=== PATIENT | male | born 1980 | race Caucasian/White ===

== ENCOUNTER 2016-06-15 13:10 | Inpatient (IN) | payer OTHER ==
[2016-06-15] MEDS: NS 0.9% 1000 ML* 2,000 ML IV ONE ×2 (14:28→15:00)
[2016-06-15 14:42] LABS: Hematocrit 51 % (42-52); Hemoglobin 17.5 g/dl (14.0-18.0); Mean Corpuscular HGB Conc 34 g/dl (31-36); Mean Corpuscular Hemoglobin 31 pg (27-31); Mean Corpuscular Volume 91 fL (80-94); Mean Platelet Volume 8 um3 (7.4-10.4); Red Blood Count 5.65 10^6/ul (4.0-5.4); Red Cell Distribution Width 13 % (10.5-15); White Blood Count 12.4 10^3/ul (3.5-10.8)
[2016-06-15 15:03] LABS: Troponin I 0.01 ng/mL (<0.04)
[2016-06-15 15:16] LABS: Alcohol < 10 mg/dL (<10)
[2016-06-15 15:17] LABS: ALT 22 U/L (7-52); AST 11 U/L (13-39); Albumin 4.8 g/dL (3.2-5.2); Alkaline Phosphatase 68 U/L (34-104); BUN/Creatinine Ratio 16.8 (8-20); Blood Urea Nitrogen 26 mg/dL (6-24); Calcium 9.8 mg/dL (8.6-10.3); Chloride 92 mmol/L (101-111); EGFR African American 65.2 (>60); EGFR Non-African American 50.7 (>60); Globulin 3.4 g/dL (2-4); Glucose 379 mg/dL (70-100); Potassium 4.8 mmol/L (3.5-5.0); Sodium 129 mmol/L (133-145); Total Protein 8.2 g/dL (6.4-8.9)
[2016-06-15 15:26] LABS: Anion Gap 24 mmol/L (2-11); CO2 Carbon Dioxide 13 mmol/L (22-32)
[2016-06-15 15:45] LABS: Urine Bacteria Absent (Absent); Urine Bilirubin Negative (Negative); Urine Glucose 3+(>=500 mg/dL) (Negative); Urine Nitrite Negative (Negative)
[2016-06-15] MEDS ORDERED: NS 0.9% 1000 ML* 3,000 ML IV ONE (15:55)
--- NOTE | 2016-06-15 16:15 | ADMNOTE ---
Subjective Date of Service: 06/15/16 Interval History: ADMISSION HISTORY AND PHYSICAL EXAM: Allergies Allergy/AdvReac Type Severity Reaction Status Date / Time No Known Allergies Allergy Verified 06/15/16 13:18 Home Medications Medication Instructions Recorded Confirmed Type amLODIPine TAB* [Norvasc 5 mg TAB*] 5 mg PO DAILY 03/07/16 03/07/16 History busPIRone TAB* [Buspar TAB *] 15 mg PO BID 03/07/16 03/07/16 History Gabapentin CAP(*) [Neurontin 300 300 mg PO TID #90 cap 03/10/16 Rx CAP(*)] Hydrochlorothiazide TAB* 25 mg PO DAILY tab 03/10/16 Rx [Hydrodiuril TAB*] Insulin GLARGINE(*) [Lantus(*)] 70 units SUBCUT AM #0 06/15/16 oral Insulin Lispro [Humalog Kwikpen] 1 unit SC AC #0 03/10/16 03/07/16 Rx Lisinopril TAB* [Prinivil TAB 10 40 mg PO DAILY tab 03/10/16 Rx MG*] Vitamin THERAPEUTIC TAB* 1 tab PO DAILY tab 03/10/16 Rx [Theragran TAB*] HPI: Patient was ill with N&V, abd pain for 2 days. He states he last checked his FS glucose 4 days ago. He states he has had DKA before. He states he was diagnosed with DM about age 27, initially treated with oral meds. He is concerned about the fact that his girlfriend was diagnosed with an STD. They have an appt with [facility] 06/24/16. Family History: Findings Social History: Findings - , 3 children live with their mother. SDM is his girlfriend Ana Gagnon. DWI 2013. Smoked "years ago". Past Medical History: Findings - DM age 27, bipolar disorder hospitalized 02/27. Review of Systems - Measurements Intake and Output: Intake and Output Last 24 Hours 06/13/16 06/14/16 06/15/16 06/16/16 06:59 06:59 06:59 06:59 Intake Total 1999 Balance 1999 Weight 236 lb Intake: IV Fluids 1999 - Review of Systems Constitutional Symptoms: Negative: Weight Gain, Weight Loss, Weakness, Fatigue, Fever, Night Sweats, Unexplained Falls, Other Dermatology: Positive: Normal HEENT: Positive: Normal Eyes: Positive: Normal Thyroid: Positive: Normal Pulmonary: Positive: Normal Cardiology: Positive: Normal Gastroenterology: Positive: Nausea, Vomiting Genital - Urinary: Positive: Normal Genitourinary - Male: Positive: Other - C/O pain in testicles. Musculoskeletal: Negative: Joint Pain, Joint Stiffness, Arthritis, Osteoporosis, Low Back Pain , Sciatica, Joint Deformities, Kyphoscoliosis, Other Endocrinology: Positive: Diabetes Mellitus Hematologic/Lymphatic: Negative: Anemia, Easy Brusing, Hx Leukemia, Hx Lymphoma, Use of Anticoagulant, Use of Antiplatelet Drugs, Other Neurology: Positive: Normal Psychiatry: Positive: Anxiety Allergic/Immunologic: Negative: Hx Anaphylaxis, Hx Angioedema, Hx Environmental, Hx Seasonal, Athsma, Hx HIV, Immunocompromise, Swollen Glands LymphNodes, Other Objective Active Medications: Buspirone HCl (Buspar Tab *) 15 mg PO BID ALEXANDRE Sodium Chloride (Ns 0.9% 1000 Ml*) 2,000 mls @ 1,000 mls/hr IV .PER RATE ONE Stop: 06/15/16 16:08 Last Admin: 06/15/16 15:00 Dose: 1,000 mls/hr Insulin Human Regular 100 (units/ Sodium Chloride) 100 mls @ 4 mls/hr IVPB Q24H ALEXANDRE PRN Reason: 4 UNITS/HR Sodium Chloride (Ns 0.9% 1000 Ml*) 3,000 mls @ 1,000 mls/hr IV .PER RATE ONE Stop: 06/15/16 18:54 Insulin Glargine (Lantus(*)) 60 units SUBCUT Q24H [facility] Vital Signs 06/15/16 06/15/16 06/15/16 13:18 13:32 13:34 Temperature 97.5 F Pulse Rate 100 95 Respiratory 20 Rate Blood Pressure 132/77 137/75 (mmHg) O2 Sat by Pulse 100 99 Oximetry 06/15/16 06/15/16 06/15/16 13:53 14:00 14:30 Temperature Pulse Rate 112 99 94 Respiratory Rate Blood Pressure 149/97 157/89 123/86 (mmHg) O2 Sat by Pulse 98 99 99 Oximetry 06/15/16 06/15/16 15:00 15:30 Temperature Pulse Rate 86 94 Respiratory Rate Blood Pressure 127/69 144/93 (mmHg) O2 Sat by Pulse 100 100 Oximetry Oxygen Devices in Use Now: None Appearance: Alert, supine on ED stretcher. In fair spirits. Looks comfortable. Eyes: No Scleral Icterus Ears/Nose/Mouth/Throat: Clear Oropharnyx, Mucous Membranes Moist Neck: NL Appearance and Movements; NL JVP, No Thyroid Enlargement, Masses Respiratory: Symmetrical Chest Expansion and Respiratory Effort, Clear to Auscultation, Clear to Percussion Cardiovascular: NL Sounds; No Murmurs; No JVD, RRR, No Edema, - Abdominal: NL Sounds; No Tenderness; No Distention, No Hepatosplenomegaly - No tenderness to deep palpation. No scrotal mass or swelling, testes not enlarged , not tender. No penile discharge. , - Extremities: No Edema, No Clubbing, Cyanosis Skin: No Rash or Ulcers, No Nodules or Sclerosis Neurological: Alert and Oriented x 3, NL Sensation Result Diagrams: 06/15/16 14:25 06/15/16 14:25 Assess/Plan/Problems-Billing Assessment: - Patient Problems (1) DKA (diabetic ketoacidoses) Current Visit: Yes Status: Acute Code(s): E13.10 - OTH DIABETES MELLITUS WITH KETOACIDOSIS WITHOUT COMA SNOMED Code(s): 443997169 Comment: Patient not very rigorous about controlling his DM at home. No other medical illness seems to be present to account for his DKA. ICU care with insulin infusion, FS q 1 hr. Start oral K+ 4/3 in evening. (2) Exposure to STD Current Visit: Yes Status: Acute Code(s): Z20.2 - CONTACT W AND EXPOSURE TO INFECT W A SEXL MODE OF TRANSMISS SNOMED Code(s): 760176927 Comment: Urine test for chlamydia and gonorrhea ordered. (3) Mood disorder Current Visit: No Status: Acute Comment: Not clear if gabapentin has been of benefit for him or if he uses it. Mood seems fairly appropriate now.
[2016-06-15 17:54] LABS: BUN/Creatinine Ratio 15.5 (8-20); Calcium 8.5 mg/dL (8.6-10.3); EGFR African American 80.6 (>60); EGFR Non-African American 62.7 (>60); Potassium 4.4 mmol/L (3.5-5.0)
[2016-06-15] MEDS ORDERED: Dextrose 50% Syringe 50 ML* 25 GM/50 ML SYRINGE IV PUSH PRN ×2 (18:07→18:10)
[2016-06-15] MEDS ORDERED: Insulin LISPRO* 1 UNITS UNIT SUBCUT SCH ×2 (18:10→21:00)
[2016-06-15 19:31] LABS: Benzodiazepine Urine Screen Presumptive Positive (None Detect)
[2016-06-15] MEDS ORDERED: Potassium Chlor TAB* 20 MEQ TAB.ER PO SCH (21:00)
[2016-06-15] MEDS ORDERED: busPIRone TAB* 15 MG PO SCH (21:00)
--- NOTE | 2016-06-15 22:32 | ED ---
Blaze Sharpe Benjamin, scribed for Rigo Wang MD on 06/15/16 at 1526 . HPI Diabetic - HPI Summary HPI Summary: 36yo male BIB EMS for possible DKA. Pt is type 2 diabetic, and reports being disoriented today. Pt was on the phone with his girlfriend, and his girlfriend noted that the pt was disoriented over phone and called 911. Pt reports vomiting all throughout yesterday, night sweats last night, and some abdominal discomfort. Blood glucose was around 400s en route. Pt also reports a separate pulsating testicle pain. Pt states that his partner might have STIs. - History Of Current Complaint Chief Complaint: EDDiabeticProb Time Seen by Provider: 06/15/16 13:50 Hx Obtained From: Patient Onset/Duration: Sudden Onset, Lasting Hours Timing: Intermittent Episode Lasting Severity Initially: Moderate Severity Currently: Moderate Character: Confused Aggravating: Nothing Alleviating: Nothing Associated Signs & Symptoms: Decreased Level of Conciousness, Vomiting Related History: DM II - Allergies/Home Medications Allergies/Adverse Reactions: Allergies Allergy/AdvReac Type Severity Reaction Status Date / Time No Known Allergies Allergy Verified 06/15/16 13:18 Home Medications: Home Medications Diazepam TAB(*) [Valium TAB(*)] 5 mg PO BID 06/15/16 [History Confirmed 06/15/16 ] Diazepam TAB(*) [Valium TAB(*)] 10 mg PO BEDTIME PRN 06/15/16 [History Confirmed 06/15/16] FLUoxetine CAP* [PROzac CAP*] 20 mg PO QAM 06/15/16 [History Confirmed 06/15/16] Insulin GLARGINE(*) [Lantus(*)] 50 units SUBCUT QPM 06/15/16 [History Confirmed 06/15/16] Insulin Lispro [Humalog Kwikpen] 0 - 100 unit SUBCUT AC 06/15/16 [History Confirmed 06/15/16] Lisinopril/HCTZ 20/12.5(NF) [Zestoretic 20/12.5(NF)] 2 tab PO DAILY 06/15/16 [ History Confirmed 06/15/16] Lurasidone (NF) [Latuda (NF)] 40 mg PO BEDTIME 06/15/16 [History Confirmed 05/29] traZODone TAB* [Desyrel TAB*] 100 mg PO BEDTIME PRN 06/15/16 [History Confirmed 06/15/16] PMH/Surg Hx/FS Hx/Imm Hx Endocrine/Hematology History: Reports: Hx Diabetes Cardiovascular History: Reports: Hx Hypertension Musculoskeletal History: Reports: Hx Back Problems - says has h\o bulging disks (two) for years Sensory History: Reports: Hx Contacts or Glasses Denies: Hx Cataracts Opthamlomology History: Reports: Hx Contacts or Glasses Denies: Hx Cataracts Neurological History: Reports: Hx Migraine Denies: Hx Dementia, Hx Developmental Delay, Hx Seizures, Hx Transient Ischemic Attacks (TIA) Psychiatric History: Reports: Hx Anxiety, Hx Depression, Hx Post Traumatic Stress Disorder, Hx Bipolar Disorder Denies: Hx Eating Disorder, Hx of Violent Episodes Against Others Infectious Disease History: No Infectious Disease History: Denies: Hx Clostridium Difficile, Hx Hepatitis, Hx Human Immunodeficiency Virus (HIV), Hx of Known/Suspected MRSA, Hx Shingles, Hx Tuberculosis, History Other Infectious Disease, Traveled Outside the [place] in Last 30 Days - Family History Known Family History: Positive: Diabetes, Other - substance abuse, mental health problems - Social History Occupation: Employed Full-time Lives: With Family Alcohol Use: Rare Substance Use Type: Reports: None, Other 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 Hx Tobacco Use: Yes Smoking Status (MU): Former Smoker Type: Cigarettes Have You Smoked in the Last Year: No Review of Systems Positive: Skin Diaphoresis, Other - DKA like symptoms Eyes: Negative ENT: Negative Cardiovascular: Negative Respiratory: Negative Positive: Abdominal Pain - discomfort , Vomiting Genitourinary: Negative Musculoskeletal: Negative Skin: Negative Neurological: Other - confused Psychological: Normal All Other Systems Reviewed And Are Negative: Yes Physical Exam Triage Information Reviewed: Yes Vital Signs On Initial Exam: Initial Vitals Temp Pulse Resp BP Pulse Ox 97.5 F 100 20 132/77 100 06/15/16 13:18 06/15/16 13:18 06/15/16 13:18 06/15/16 13:18 06/15/16 13:18 Vital Signs Reviewed: Yes Appearance: Positive: Well-Appearing, No Pain Distress, Well-Nourished Skin: Positive: Warm, Skin Color Reflects Adequate Perfusion, Dry Head/Face: Positive: Normal Head/Face Inspection Eyes: Positive: Normal ENT: Positive: Normal ENT inspection Neck: Positive: Supple, Nontender Respiratory/Lung Sounds: Positive: Clear to Auscultation, Breath Sounds Present Cardiovascular: Positive: RRR Abdomen Description: Positive: Nontender, Soft Bowel Sounds: Positive: Present Musculoskeletal: Positive: Strength/ROM Intact Neurological: Positive: Sensory/Motor Intact, Alert, Oriented to Person Place, Time, CN Intact II-III Psychiatric: Positive: Affect/Mood Appropriate - Gomez Coma Scale Coma Scale Total: 15 Diagnostics - Vital Signs Vital Signs Temp Pulse Resp BP Pulse Ox 06/15/16 14:00 99 157/89 99 06/15/16 13:53 112 149/97 98 06/15/16 13:34 95 99 06/15/16 13:32 137/75 06/15/16 13:18 97.5 F 100 20 132/77 100 - Laboratory Lab Results: Lab Results 06/15/16 06/15/16 06/15/16 Range/Units 13:51 14:25 14:25 WBC 12.4 H (3.5-10.8) 10^3/ul RBC 5.65 H (4.0-5.4) 10^6/ul Hgb 17.5 (14.0-18.0) g/dl Hct 51 (42-52) % MCV 91 (80-94) fL MCH 31 (27-31) pg MCHC 34 (31-36) g/dl RDW 13 (10.5-15) % Plt Count 363 (150-450) 10^3/ul MPV 8 (7.4-10.4) um3 Neut % (Auto) 78.3 (38-83) % Lymph % (Auto) 14.8 L (25-47) % [place] % (Auto) 5.5 (1-9) % Eos % (Auto) 1.0 (0-6) % Baso % (Auto) 0.4 (0-2) % Absolute Neuts (auto) 9.8 H (1.5-7.7) 10^3/ul Absolute Lymphs (auto) 1.8 (1.0-4.8) 10^3/ul Absolute Monos (auto) 0.7 (0-0.8) 10^3/ul Absolute Eos (auto) 0.1 (0-0.6) 10^3/ul Absolute Basos (auto) 0.1 (0-0.2) 10^3/ul Absolute Nucleated RBC 0.01 10^3/ul Nucleated RBC % 0.1 Sodium 129 L (133-145) mmol/L Potassium 4.8 (3.5-5.0) mmol/L Chloride 92 L (101-111) mmol/L Carbon Dioxide 13 L* (22-32) mmol/L Anion Gap 24 H (2-11) mmol/L BUN 26 H (6-24) mg/dL Creatinine 1.55 H (0.67-1.17) mg/dL Est GFR ( Amer) 65.2 (>60) Est GFR (Non-Af Amer) 50.7 (>60) BUN/Creatinine Ratio 16.8 (8-20) Glucose 379 H (70-100) mg/dL POC Glucose (mg/dL) 403 H* (74-106) mg/dL Lactic Acid (0.5-2.0) mmol/L Calcium 9.8 (8.6-10.3) mg/dL Total Bilirubin 1.20 H (0.2-1.0) mg/dL AST 11 L (13-39) U/L ALT 22 (7-52) U/L Alkaline Phosphatase 68 (34-104) U/L Troponin I 0.01 (<0.04) ng/mL Total Protein 8.2 (6.4-8.9) g/dL Albumin 4.8 (3.2-5.2) g/dL Globulin 3.4 (2-4) g/dL Albumin/Globulin Ratio 1.4 (1-3) Urine Color Urine Appearance Urine pH (5-9) Ur Specific Jackson (1.010-1.030) Urine Protein (Negative) Urine Ketones (Negative) Urine Blood (Negative) Urine Nitrate (Negative) Urine Bilirubin (Negative) Urine Urobilinogen (Negative) Ur Leukocyte Esterase (Negative) Urine WBC (Auto) (Absent) Urine RBC (Auto) (Absent) Ur Squamous Epith Cells (Absent) Urine Bacteria (Absent) Urine Glucose (Negative) Serum Alcohol < 10 (<10) mg/dL 06/15/16 06/15/16 Range/Units 14:25 15:30 WBC (3.5-10.8) 10^3/ul RBC (4.0-5.4) 10^6/ul Hgb (14.0-18.0) g/dl Hct (42-52) % MCV (80-94) fL MCH (27-31) pg MCHC (31-36) g/dl RDW (10.5-15) % Plt Count (150-450) 10^3/ul MPV (7.4-10.4) um3 Neut % (Auto) (38-83) % Lymph % (Auto) (25-47) % [place] % (Auto) (1-9) % Eos % (Auto) (0-6) % Baso % (Auto) (0-2) % Absolute Neuts (auto) (1.5-7.7) 10^3/ul Absolute Lymphs (auto) (1.0-4.8) 10^3/ul Absolute Monos (auto) (0-0.8) 10^3/ul Absolute Eos (auto) (0-0.6) 10^3/ul Absolute Basos (auto) (0-0.2) 10^3/ul Absolute Nucleated RBC 10^3/ul Nucleated RBC % Sodium (133-145) mmol/L Potassium (3.5-5.0) mmol/L Chloride (101-111) mmol/L Carbon Dioxide (22-32) mmol/L Anion Gap (2-11) mmol/L BUN (6-24) mg/dL Creatinine (0.67-1.17) mg/dL Est GFR ( Amer) (>60) Est GFR (Non-Af Amer) (>60) BUN/Creatinine Ratio (8-20) Glucose (70-100) mg/dL POC Glucose (mg/dL) (74-106) mg/dL Lactic Acid 1.3 (0.5-2.0) mmol/L Calcium (8.6-10.3) mg/dL Total Bilirubin (0.2-1.0) mg/dL AST (13-39) U/L ALT (7-52) U/L Alkaline Phosphatase (34-104) U/L Troponin I (<0.04) ng/mL Total Protein (6.4-8.9) g/dL Albumin (3.2-5.2) g/dL Globulin (2-4) g/dL Albumin/Globulin Ratio (1-3) Urine Color Yellow Urine Appearance Clear Urine pH 5.0 (5-9) Ur Specific Jackson 1.027 (1.010-1.030) Urine Protein Negative (Negative) Urine Ketones 2+ H (Negative) Urine Blood 1+ H (Negative) Urine Nitrate Negative (Negative) Urine Bilirubin Negative (Negative) Urine Urobilinogen Negative (Negative) Ur Leukocyte Esterase Negative (Negative) Urine WBC (Auto) Absent (Absent) Urine RBC (Auto) Trace(0-2/hpf) (Absent) Ur Squamous Epith Cells Present H (Absent) Urine Bacteria Absent (Absent) Urine Glucose 3+(>=500 mg/dl) H (Negative) Serum Alcohol (<10) mg/dL Result Diagrams: 06/15/16 14:25 06/15/16 17:00 Lab Statement: Any lab studies that have been ordered have been reviewed, and results considered in the medical decision making process. Diabetic Course/Dx - Course Course Of Treatment: Mr. Browning presented with mild DKA and was treated with NS and admitted to the hospital. - Diagnoses Provider Diagnoses: DKA (diabetic ketoacidoses) - Critical Care Time Critical Care Time: 30-74 min Discharge - Discharge Plan Condition: Stable Disposition: ADMITTED TO [facility] The documentation as recorded by the Blaze florez Benjamin accurately reflects the service I personally performed and the decisions made by Felipe rocha Richard L, MD.
[2016-06-15 23:22] VITALS: BP 151/83
[2016-06-16] MEDS ORDERED: Insulin GLARGINE(*) 1 UNITS UNIT SUBCUT SCH (08:00)
== END 2016-06-15 21:00 | disposition left against medical advice (07) | DRG 420 ==
LOC: ED 13:10 → ICU 15:34 → MED 21:00
PROVIDERS: ADMIT Internal Medicine; ATTEND Internal Medicine
DX: E13.10 Other specified diabetes mellitus with ketoacidosis without coma (principal); F33.9 Major depressive disorder, recurrent, unspecified; I10 Essential (primary) hypertension; F41.9 Anxiety disorder, unspecified; G43.909 Migraine, unspecified, not intractable, without status migrainosus; F43.10 Post-traumatic stress disorder, unspecified; Z87.891 Personal history of nicotine dependence; Z20.2 Contact with and (suspected) exposure to infections with a predominantly sexual mode of transmission; Z79.4 Long term (current) use of insulin
CPT/HCPCS: 36415; 80048; 80053; 80307; 80320; 81003; 81015; 83605; 84484; 85025; 87491; 87591; 87641; A9270-GY; G0480

== ENCOUNTER 2016-07-10 03:00 | Emergency (ER) | payer OTHER ==
[2016-07-10] MEDS ORDERED: Mouth Piece, Nicotine* 1 EACH CARTRIDGE ONE (03:11)
[2016-07-10] MEDS ORDERED: Nicotine Inhaler* 10 MG AMP ONE (03:11)
[2016-07-10 03:32] LABS: Hematocrit 49 % (42-52); Hemoglobin 16.5 g/dl (14.0-18.0); Mean Corpuscular HGB Conc 34 g/dl (31-36); Mean Corpuscular Hemoglobin 31 pg (27-31); Mean Corpuscular Volume 91 fL (80-94); Mean Platelet Volume 8 um3 (7.4-10.4); Red Blood Count 5.39 10^6/ul (4.0-5.4); Red Cell Distribution Width 13 % (10.5-15); White Blood Count 6.8 10^3/ul (3.5-10.8)
[2016-07-10 03:43] LABS: ALT 19 U/L (7-52); AST 14 U/L (13-39); Albumin 4.7 g/dL (3.2-5.2); Alkaline Phosphatase 64 U/L (34-104); Anion Gap 14 mmol/L (2-11); BUN/Creatinine Ratio 6.5 (8-20); Blood Urea Nitrogen 6 mg/dL (6-24); CO2 Carbon Dioxide 22 mmol/L (22-32); Calcium 9.6 mg/dL (8.6-10.3); Chloride 99 mmol/L (101-111); EGFR African American 117.6 (>60); EGFR Non-African American 91.4 (>60); Globulin 3.5 g/dL (2-4); Glucose 344 mg/dL (70-100); Sodium 135 mmol/L (133-145); Total Protein 8.2 g/dL (6.4-8.9)
[2016-07-10 03:44] LABS: Urine Bilirubin Negative (Negative); Urine Glucose 3+(>=500 mg/dL) (Negative); Urine Nitrite Negative (Negative)
[2016-07-10] MEDS ORDERED: NS 0.9% 1000 ML* 1,000 ML IV ONE ×2 (03:49→04:15)
[2016-07-10 03:54] LABS: Benzodiazepine Urine Screen None Detected (None Detect)
[2016-07-10 03:54] LABS: Acetaminophen < 15 mcg/mL; Alcohol 238 mg/dL (<10); Salicylate < 2.50 mg/dL (<30)
[2016-07-10 04:04] LABS: TSH (Thyroid Stimulating Horm) 4.77 mcIU/mL (0.34-5.60)
--- NOTE | 2016-07-10 04:15 | ED ---
Juan Sharpe Michael, scribed for Monet Dowell MD on 07/10/16 at 0350 . Altered Mental Status - HPI Summary HPI Summary: 36 y/o was brought to the ED by police presenting with AMS. The pt reports that he recently relapsed with alcohol and cocaine. He states his girlfriend called the police on him after an altercation tonight. The pt also c/o recent stress that aggravated his relapse. The PMHx is significant for depression and anxiety. - History Of Current Complaint Chief Complaint: EDMentalHealth Stated Complaint: ETOH,POSSIBLE HIGH BLOOD SUGAR Time Seen by Provider: 07/10/16 03:14 Hx Obtained From: Patient, Medical Records, Other: - police Onset/Duration: Still Present Timing: Constant Severity Initially: Moderate Severity Currently: Moderate Aggravating Factor(s): Other - stress Alleviating Factor(s): Nothing Associated Signs And Symptoms: Negative: Negative - AMS. - Allergies/Home Medications Allergies/Adverse Reactions: Allergies Allergy/AdvReac Type Severity Reaction Status Date / Time No Known Allergies Allergy Verified 06/15/16 13:18 PMH/Surg Hx/FS Hx/Imm Hx Endocrine/Hematology History: Reports: Hx Diabetes Cardiovascular History: Reports: Hx Hypertension Musculoskeletal History: Reports: Hx Back Problems - says has h\o bulging disks (two) for years Denies: Hx Arthritis, Hx Osteoporosis Sensory History: Reports: Hx Contacts or Glasses Denies: Hx Cataracts, Hx Hearing Aid Opthamlomology History: Reports: Hx Contacts or Glasses Denies: Hx Cataracts Neurological History: Reports: Hx Migraine Denies: Hx Dementia, Hx Developmental Delay, Hx Seizures, Hx Transient Ischemic Attacks (TIA) Psychiatric History: Reports: Hx Anxiety, Hx Attention Deficit Hyperactivity Disorder, Hx Depression, Hx Panic Disorder, Hx Post Traumatic Stress Disorder, Hx Inpatient Treatment, Hx Bipolar Disorder, Hx Suicide Attempt, Hx Substance Abuse Denies: Hx Eating Disorder, Hx of Violent Episodes Against Others Infectious Disease History: No Infectious Disease History: Denies: Hx Clostridium Difficile, Hx Hepatitis, Hx Human Immunodeficiency Virus (HIV), Hx of Known/Suspected MRSA, Hx Shingles, Hx Tuberculosis, History Other Infectious Disease, Traveled Outside the [place] in Last 30 Days - Family History Known Family History: Positive: Diabetes, Other - substance abuse, mental health problems - Social History Occupation: Employed Full-time Lives: With Family Alcohol Use: Rare Substance Use Type: Reports: None, Other 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 Hx Tobacco Use: Yes Smoking Status (MU): Former Smoker Type: Cigarettes Have You Smoked in the Last Year: No Review of Systems Negative: Fever Neurological: Other - ams All Other Systems Reviewed And Are Negative: Yes Physical Exam Triage Information Reviewed: Yes Vital Signs On Initial Exam: Initial Vitals Temp Pulse Resp BP Pulse Ox 97.3 F 120 22 143/88 97 07/10/16 03:04 07/10/16 03:04 07/10/16 03:04 07/10/16 03:04 07/10/16 03:04 Vital Signs Reviewed: Yes Appearance: Positive: Well-Appearing, No Pain Distress Skin: Positive: Warm, Skin Color Reflects Adequate Perfusion, Dry Eyes: Positive: EOMI, BABITA ENT: Positive: Hearing grossly normal, TMs normal Neck: Positive: Supple, Nontender Respiratory/Lung Sounds: Positive: Clear to Auscultation, Breath Sounds Present. Negative: Rales, Rhonchi, Wheezes Cardiovascular: Positive: Tachycardia, Other - no gallops. Negative: Murmur, Rub Abdomen Description: Positive: Nontender, Soft, Other: - no rebound. Negative: Distended, Guarding Bowel Sounds: Positive: Present Musculoskeletal: Positive: Strength/ROM Intact. Negative: Edema Left, Edema Right Neurological: Positive: Sensory/Motor Intact, Alert, Oriented to Person Place, Time, CN Intact II-III Psychiatric: Positive: Affect/Mood Appropriate Diagnostics - Vital Signs Vital Signs Temp Pulse Resp BP Pulse Ox 07/10/16 03:04 97.3 F 120 22 143/88 97 - Laboratory Lab Results: Lab Results 07/10/16 07/10/16 07/10/16 Range/Units 03:18 03:18 03:25 WBC 6.8 (3.5-10.8) 10^3/ul RBC 5.39 (4.0-5.4) 10^6/ul Hgb 16.5 (14.0-18.0) g/dl Hct 49 (42-52) % MCV 91 (80-94) fL MCH 31 (27-31) pg MCHC 34 (31-36) g/dl RDW 13 (10.5-15) % Plt Count 319 (150-450) 10^3/ul MPV 8 (7.4-10.4) um3 Neut % (Auto) 57.2 (38-83) % Lymph % (Auto) 36.2 (25-47) % [place] % (Auto) 5.2 (1-9) % Eos % (Auto) 0.7 (0-6) % Baso % (Auto) 0.7 (0-2) % Absolute Neuts (auto) 3.9 (1.5-7.7) 10^3/ul Absolute Lymphs (auto) 2.5 (1.0-4.8) 10^3/ul Absolute Monos (auto) 0.4 (0-0.8) 10^3/ul Absolute Eos (auto) 0 (0-0.6) 10^3/ul Absolute Basos (auto) 0 (0-0.2) 10^3/ul Absolute Nucleated RBC 0.01 10^3/ul Nucleated RBC % 0.1 Sodium 135 (133-145) mmol/L Potassium 4.0 (3.5-5.0) mmol/L Chloride 99 L (101-111) mmol/L Carbon Dioxide 22 (22-32) mmol/L Anion Gap 14 H (2-11) mmol/L BUN 6 (6-24) mg/dL Creatinine 0.93 (0.67-1.17) mg/dL Est GFR ( Amer) 117.6 (>60) Est GFR (Non-Af Amer) 91.4 (>60) BUN/Creatinine Ratio 6.5 L (8-20) Glucose 344 H (70-100) mg/dL Calcium 9.6 (8.6-10.3) mg/dL Total Bilirubin 0.70 (0.2-1.0) mg/dL AST 14 (13-39) U/L ALT 19 (7-52) U/L Alkaline Phosphatase 64 (34-104) U/L Total Protein 8.2 (6.4-8.9) g/dL Albumin 4.7 (3.2-5.2) g/dL Globulin 3.5 (2-4) g/dL Albumin/Globulin Ratio 1.3 (1-3) TSH Pending Urine Color Straw Urine Appearance Clear Urine pH 6.0 (5-9) Ur Specific [place] 1.015 (1.010-1.030) Urine Protein Negative (Negative) Urine Ketones Negative (Negative) Urine Blood Negative (Negative) Urine Nitrate Negative (Negative) Urine Bilirubin Negative (Negative) Urine Urobilinogen Negative (Negative) Ur Leukocyte Esterase Negative (Negative) Urine Glucose 3+(>=500 mg/dl) H (Negative) Salicylates Pending Acetaminophen Pending Serum Alcohol Pending Result Diagrams: 07/10/16 03:18 07/10/16 03:18 Lab Statement: Any lab studies that have been ordered have been reviewed, and results considered in the medical decision making process. Altered Mental Statu Course/Dx - Course Course Of Treatment: pt arrived after argument with partner and using alcohol and cocaine. Pt will be medically cleared at 10am, in the meantime his blood sugar is elevated and he does have dm. He is receiving one to two liters of fluid and a blood sugar will be done after fluids are completed.Pt will be signed out to am doc for final disposition - Diagnoses Discharge Diagnoses: Diabetes, Intoxication Discharge - Discharge Plan Condition: Stable Disposition: OTHER Discharge Disposition Comment: final disposition to be done by am attending The documentation as recorded by the Juan florez Michael accurately reflects the service I personally performed and the decisions made by me, Monet Dowell MD.
[2016-07-10] MEDS ORDERED: Insulin REGULAR(*) 1 UNITS UNIT SUBCUT ONE (10:41)
[2016-07-10] MEDS ORDERED: Acetaminophen TAB* 325 MG PO ONE (11:36)
[2016-07-10 11:59] VITALS: BP 133/58
== END 2016-07-10 11:57 ==
LOC: ED 03:00 → EEVIPCON 03:00 → ED 11:57
DX: F10.129 Alcohol abuse with intoxication, unspecified (principal); E11.9 Type 2 diabetes mellitus without complications
CPT/HCPCS: 36415; 80053; 80307; 80320; 80329; 81003; 84443; 85025; 99284; A9270-GY; G0480

== ENCOUNTER → 2016-08-22 15:19 | Emergency (ER) | payer MEDICAID, OTHER ==
[2016-08-22 16:52] VITALS: BP 131/89
--- NOTE | 2016-08-23 18:07 | ED ---
Filiberto Sharpe Aidan, scribed for Kobi Dover MD on 08/22/16 at 1600 . 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 He did not have any food, took insulin , and then was found lying down delirious and extremely diaphoretic. His girlfriend gave him 20 units of hemolog. Currently he feels better. The lowest glucose reading was 56. - History Of Current Complaint Chief Complaint: EDDiabeticProb Time Seen by Provider: 08/22/16 15:23 Hx Obtained From: Patient Onset/Duration: Sudden Onset, Lasting Minutes, Resolved Timing: Intermittent Episode Lasting Severity Initially: Moderate Severity Currently: None Character: Confused, Other - delerious, diaphoretic, confused Aggravating: Other - poor management of diabetes today Alleviating: Other - unknown Associated Signs & Symptoms: Decreased Level of Conciousness - Pt was delerious during the episode, Diaphoresis Related History: DM I - Risk Factors Cardiac Risk Factors: Hypertension, Smoking - former smoker CVA Risk Factor: Hypertension, Smoking - former smoker - Allergies/Home Medications Allergies/Adverse Reactions: Allergies Allergy/AdvReac Type Severity Reaction Status Date / Time No Known Allergies Allergy Verified 06/15/16 13:18 PMH/Surg Hx/FS Hx/Imm Hx Endocrine/Hematology History: Reports: Hx Diabetes Cardiovascular History: Reports: Hx Hypertension Musculoskeletal History: Reports: Hx Back Problems - says has h\o bulging disks (two) for years Denies: Hx Arthritis, Hx Osteoporosis Sensory History: Reports: Hx Contacts or Glasses Denies: Hx Cataracts, Hx Hearing Aid Opthamlomology History: Reports: Hx Contacts or Glasses Denies: Hx Cataracts Neurological History: Reports: Hx Migraine Denies: Hx Dementia, Hx Developmental Delay, Hx Seizures, Hx Transient Ischemic Attacks (TIA) Psychiatric History: Reports: Hx Anxiety, Hx Attention Deficit Hyperactivity Disorder, Hx Depression, Hx Panic Disorder, Hx Post Traumatic Stress Disorder, Hx Inpatient Treatment, Hx Bipolar Disorder, Hx Suicide Attempt, Hx Substance Abuse Denies: Hx Eating Disorder, Hx of Violent Episodes Against Others - Immunization History Date of Tetanus Vaccine: UTD Date of Influenza Vaccine: UTD Infectious Disease History: No Infectious Disease History: Denies: Hx Clostridium Difficile, Hx Hepatitis, Hx Human Immunodeficiency Virus (HIV), Hx of Known/Suspected MRSA, Hx Shingles, Hx Tuberculosis, History Other Infectious Disease, Traveled Outside the [place] in Last 30 Days - Family History Known Family History: Positive: Diabetes, Other - substance abuse, mental health problems - Social History Occupation: Unemployed Lives: Alone Alcohol Use: Rare Substance Use Type: Reports: None, Other 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 Negative: Fever, Chills, Fatigue, Skin Diaphoresis Eyes: Negative ENT: Negative Cardiovascular: Negative Respiratory: Negative Gastrointestinal: Negative Genitourinary: Negative Musculoskeletal: Negative Skin: Negative Neurological: Negative Psychological: Normal All Other Systems Reviewed And Are Negative: Yes Physical Exam - Summary Physical Exam Summary: VITAL SIGNS: Reviewed. GENERAL: Patient is a well-developed and nourished (MALE OR FEMALE) who is lying comfortable in the stretcher. Patient is not in any acute respiratory distress. HEAD AND FACE: No signs of trauma. No ecchymosis, hematomas or skull depressions. No sinus tenderness. EYES: PERRLA, EOMI x 2, No injected conjunctiva, no nystagmus. EARS: Hearing grossly intact. Ear canals and tympanic membranes are within normal limits. MOUTH: Oropharynx within normal limits. NECK: Supple, trachea is midline, no adenopathy, no JVD, no carotid bruit, no c- spine tenderness, neck with full ROM. CHEST: Symmetric, no tenderness at palpation LUNGS: Clear to auscultation bilaterally. No wheezing or crackles. CVS: Regular rate and rhythm, S1 and S2 present, no murmurs or gallops appreciated. ABDOMEN: Soft, non-tender. No signs of distention. No rebound no guarding, and no masses palpated. Bowel sounds are normal. EXTREMITIES: FROM in all major joints, no edema, no cyanosis or clubbing. NEURO: Alert and oriented x 3. No acute neurological deficits. Speech is normal and follows commands. SKIN: Dry and warm Triage Information Reviewed: Yes Vital Signs On Initial Exam: Initial Vitals Temp Pulse Resp BP Pulse Ox 96.6 F 80 20 131/79 98 08/22/16 15:45 08/22/16 15:45 08/22/16 15:45 08/22/16 15:45 08/22/16 15:45 Vital Signs Reviewed: Yes - Gomez Coma Scale Coma Scale Total: 15 Diagnostics - Vital Signs Vital Signs Temp Pulse Resp BP Pulse Ox 08/22/16 15:45 96.6 F 80 20 131/79 98 - Laboratory Lab Results: Lab Results 08/22/16 08/22/16 Range/Units 15:31 16:23 POC Glucose (mg/dL) 132 H 104 (74-106) mg/dL Lab Statement: Any lab studies that have been ordered have been reviewed, and results considered in the medical decision making process. Diabetic Course/Dx - Course Course Of Treatment: His glucose is 132 and he is A&Ox3. Patient is hemodynamically stable. He declines any type of bloodwork. The patient continued to be asymptomatic. We repeated his finger stick and it was 104. He was given orange juice and his family brought him a vanilla milk shake. He continues to be stable and does not want any blood work or other testing done. The patient is requesting discharge and will be discharged home with [facility] and children. Follow up with PCP is recommended. - Diagnoses Differential Dx: Hyperglycemia, Hypoglycemia, Other Provider Diagnoses: Hypoglycemia Discharge - Discharge Plan Condition: Stable Disposition: HOME Discharge Disposition Comment: Please follow up with ur primary care provider within 3 days. Patient Education Materials: Hypoglycemia in a Person with Diabetes (ED) Referrals: Ranjan LOVE,Calixto Dunham [Primary Care Provider] - The documentation as recorded by the Filiberto florez Aidan accurately reflects the service I personally performed and the decisions made by me, Kobi Dover MD.
== END | disposition home or self-care (01) ==
LOC: ED 15:19
DX: E10.649 Type 1 diabetes mellitus with hypoglycemia without coma (principal); Z87.891 Personal history of nicotine dependence
CPT/HCPCS: 99282

== ENCOUNTER 2016-09-01 12:38 | Observation (INO) | payer MEDICAID ==
[2016-09-01] MEDS ORDERED: Ondansetron INJ* 2 MG/ML VIAL IV ONE (13:48)
[2016-09-01 14:34] LABS: Hematocrit 48 % (42-52); Hemoglobin 16.4 g/dl (14.0-18.0); Mean Corpuscular HGB Conc 34 g/dl (31-36); Mean Corpuscular Hemoglobin 32 pg (27-31); Mean Corpuscular Volume 93 fL (80-94); Mean Platelet Volume 7 um3 (7.4-10.4); Red Cell Distribution Width 13 % (10.5-15); White Blood Count 9.1 10^3/ul (3.5-10.8)
[2016-09-01 14:36] LABS: Venous Bicarbonate HCO3 13.8 mmol/L (24-28)
[2016-09-01 14:54] LABS: Troponin I 0.01 ng/mL (<0.04)
[2016-09-01 15:00] LABS: ALT 15 U/L (7-52); Albumin 4.3 g/dL (3.2-5.2); Alkaline Phosphatase 65 U/L (34-104); BUN/Creatinine Ratio 15.1 (8-20); Blood Urea Nitrogen 18 mg/dL (6-24); Chloride 96 mmol/L (101-111); EGFR African American 88.5 (>60); EGFR Non-African American 68.8 (>60); Globulin 3.4 g/dL (2-4); Glucose 198 mg/dL (70-100); Sodium 128 mmol/L (133-145); Total Protein 7.7 g/dL (6.4-8.9)
[2016-09-01 15:08] LABS: Anion Gap 19 mmol/L (2-11); CO2 Carbon Dioxide 13 mmol/L (22-32)
[2016-09-01] MEDS: NS 0.9% 1000 ML* 2,000 ML IV ONE ×2 (15:37→15:38)
[2016-09-01] MEDS ORDERED: Ondansetron INJ* 2 MG/ML VIAL IV PRN (15:53)
[2016-09-01] MEDS ORDERED: Acetaminophen TAB* 325 MG PO PRN (15:53)
[2016-09-01] MEDS ORDERED: NS 0.9% 1000 ML* 1,000 ML IV ONE (15:53)
[2016-09-01] MEDS ORDERED: NS 0.9% 1000 ML* 1,000 ML IV SCH ×2 (16:00→22:15)
[2016-09-01] MEDS ORDERED: D5W 1/2 NS 40 Meq KCL 1000 ML* 1,000 ML IV SCH (16:00)
[2016-09-01] MEDS ORDERED: traZODone TAB* 100 MG PO PRN (16:01)
[2016-09-01] MEDS ORDERED: Diazepam TAB(*) 5 MG PO PRN (16:01)
[2016-09-01 16:41] LABS: Magnesium 2.1 mg/dL (1.9-2.7)
[2016-09-01] MEDS ORDERED: LORazepam INJ* 2 MG/ML 1 ML VIAL IV PUSH PRN (17:36)
[2016-09-01 18:04] LABS: BUN/Creatinine Ratio 13.9 (8-20); Calcium 8.1 mg/dL (8.6-10.3); EGFR African American 98.9 (>60); EGFR Non-African American 76.9 (>60); Potassium 3.9 mmol/L (3.5-5.0)
[2016-09-01] MEDS ORDERED: Dextrose 50% Syringe 50 ML* 25 GM/50 ML SYRINGE IV PUSH PRN (18:11)
[2016-09-01] MEDS ORDERED: Insulin GLARGINE(*) 1 UNITS UNIT SUBCUT SCH (20:00)
[2016-09-01 20:04] LABS: Phosphorus 2.3 mg/dL (2.5-5.0)
[2016-09-01] MEDS ORDERED: LURASIDONE 20 MG PO SCH (21:00)
[2016-09-01] MEDS: Diazepam TAB(*) 5 MG PO SCH (21:08)
[2016-09-01] MEDS: Gabapentin CAP(*) 300 MG PO SCH (21:09)
[2016-09-01] MEDS: busPIRone TAB* 15 MG PO SCH (21:09)
[2016-09-01 22:00] LABS: BUN/Creatinine Ratio 13.4 (8-20); Calcium 7.8 mg/dL (8.6-10.3); EGFR African American 88.5 (>60); EGFR Non-African American 68.8 (>60); Potassium 5.1 mmol/L (3.5-5.0)
[2016-09-01] MEDS ORDERED: Insulin LISPRO* 1 UNITS UNIT SUBCUT SCH (22:00)
[2016-09-01] MEDS: Heparin VIAL(*) 5000 UNITS/ML VIAL (FIVE THOUSAND) SUBCUT SCH (22:16)
--- NOTE | 2016-09-01 23:00 | HP ---
ATTENDING PHYSICIAN ADDENDUM NOW INCLUDED ON THIS REPORT CC: Dr. Woodruff* HISTORY AND PHYSICAL: DATE OF ADMISSION: 09/01/16 PRIMARY CARE PROVIDER: Dr. Woodruff. ATTENDING PHYSICIAN WHILE IN THE HOSPITAL: Dr. Aparna Doll * (report dictated by Freddie Nguyen NP). CHIEF COMPLAINT: 1. Nausea. 2. Vomiting. 3. Elevated blood sugar. HISTORY OF PRESENT ILLNESS: Mr. Browning is a 36-year-old male patient. Over the last 5 days, he says he has not been really feeling well. He carries a history of diabetes, bipolar, PTSD, hypertension, and anxiety. He says about 5 days ago , he was having trouble affording his Levemir. He was taking his Humalog right along and then he stopped taking it because he could not afford it. He said he needed to feed his kids and that is what he prioritized to do. He says he stopped taking the Levemir and since then, he has progressively been getting worse and worse, not feeling well. Has been feeling under the weather, feeling sick. He had been having some episodes of nausea and vomiting and he denied having any chest pain or shortness of breath or any abdominal discomfort, but it was noted that his blood sugars were significantly elevated at home. He said they were in the 300s and he just was feeling weak, tired, not feeling well. He was not really eating or drinking. He had been vomiting and had not really been eating. He decided to come in to the ER. He was evaluated here. It was ultimately noted that he appeared to be in mild DKA and we were asked to evaluate for admission. PAST MEDICAL HISTORY: Significant for: 1. Diabetes. 2. Bipolar. 3. PTSD. 4. Hypertension. 5. Anxiety. PAST SURGICAL HISTORY: Denied. HOME MEDICATIONS: We are trying to get this from his pharmacy. When asking the patient what he takes, he says he does not . List that I have now which I believe is the most accurate that we can obtain currently is: 1. Trazodone 100 mg p.o. at bedtime as needed. 2. Latuda 40 mg daily. 3. Lantus 50 units subcu q.p.m. 4. Prozac 20 mg p.o. q.a.m. 5. Valium 5 mg p.o. b.i.d. 6. Valium 10 mg at bedtime as needed. 7. BuSpar 15 mg p.o. b.i.d. 8. Lispro sliding scale before meals. 9. He takes insulin detemir 75 units p.o. at bedtime. We need to clarify because I believe he is just on the Levemir. He may not be taking the Lantus. We will try to clarify if he will answer the question. 10. Gabapentin 600 mg p.o. t.i.d. 11. Lisinopril 40 mg daily. ALLERGIES TO MEDICATIONS: Include no known drug allergies. FAMILY HISTORY: His father has a history of diabetes. Mother's history was reviewed and noncontributory. SOCIAL HISTORY: He admits to using speed and cocaine. Denies using marijuana. He says he does drink, but very rarely. He does not smoke. Surrogate decision maker is his fiancee and father. REVIEW OF SYSTEMS: There is no documented fever. He denied having any significant weight change. There was no double vision. He denied having any ear discharge. There was no rhinorrhea. No sore throat. No thyroid enlargement. Denied having any chest pain. There was no orthopnea. There was no nocturnal dyspnea. There was no abdominal pain. There was nausea. There was vomiting. There was no dysuria. No frequency. No loss of consciousness. No pruritus and no skin ulcerations. Review of 14 systems completed, all others negative. PHYSICAL EXAMINATION GENERAL: At this time, Mr. Browning is a 36-year-old male patient. He is sitting in the ER stretcher. He does not appear to be in any acute distress. VITAL SIGNS: Blood pressure 158/92, pulse 88, respirations 16, O2 sat 99%, and temperature 97.3. HEENT: Head is atraumatic and normocephalic. Eyes: EOMs intact. Sclerae are anicteric and not pale. Throat: Oral mucosa appears to be moist. No oropharyngeal erythema. NECK: Supple. LUNGS: Clear to auscultation bilaterally. No wheezes, rales, or rhonchi. HEART: Sounds S1, S2. Regular rate and rhythm. No murmurs, rubs, or gallops. ABDOMEN: Soft, flat, and nontender. Bowel sounds present. EXTREMITIES: Pulses were 2+ throughout. He had no peripheral edema. He moves all extremities with 5/5 strength. NEUROLOGIC: He is awake, he is alert, and he is oriented x3. His tongue is midline. His watch leader are equal. He had no gross focal deficits. SKIN: Intact. LABORATORY DATA AND DIAGNOSTIC STUDIES: Today revealed a WBC of 9.1, RBC of 5.20, hemoglobin of 16.4, hematocrit of 48, platelet count of 355. Blood gas showed a venous pH of 7.28. His BMP revealed a sodium of 128. His potassium is pending, we had to redraw. Chloride of 96, bicarb of 13, BUN of 18, creatinine of 1.19, glucose 198, lactic 2.1, calcium 9.0, total bili 0.9. ALT 15, alk phos 65, troponin 0.01, albumin 4.3. Old medical records were reviewed. ASSESSMENT AND PLAN: Mr. Browning is a 36-year-old male patient with multiple medical problems coming in to the ER today with complaints of not feeling well, on evaluation found to be in mild diabetic ketoacidosis. He will be admitted under inpatient status for: 1. Diabetic ketoacidosis: At this point, insulin drip has been started. He did not receive a bolus because his sugar was only 198. I did not want to make him hypoglycemic. I am going to start D5 half normal with 40 mEq of potassium. I will go ahead and give him 3 L of normal saline wide open right now as well as I think he is dehydrated. Start the insulin drip. We will check BMPs every 4 hours. We will keep an eye on his potassium, replete it as needed, and he will be n.p.o. until the anion gap closes. Once the gap closes, I would start him on a diet and give him his dose of either Lantus or Levemir and getting him back on a sliding scale and then continue to follow and we will check an A1c in the morning. 2. Bipolar, post-traumatic stress disorder, anxiety, depression: At this point again, the patient seems to be very agitated. He is one minute talking about his children and the next minute talking about him at the [facility]. He is talking about his drug use. He seems to have a flight of ideas and it is hard to focus on one particular point in the conversation. So, I am just questioning if he may need adjustment of his medication; I did put a psychiatric consult in. 3. History of polysubstance abuse: I will get a U-tox using currently. Certainly, if he is using cocaine, it is not going to help with his bipolar disorder and I did order a social work consult because of history of the polysubstance abuse in addition, maybe we can try to help getting his Levemir and long-acting insulin as this is going to be paramount in preventing him from going back into diabetic ketoacidosis. 4. DVT prophylaxis: He is moderate risk. He will be placed on heparin subcu. 5. Code status: Full code. 6. Fluids, electrolytes, and nutrition: He is n.p.o. After the anion gap closes, I will start him on a consistent carbohydrate diet. TIME SPENT: Time spent on the admission was 60 minutes; greater than half the time was spent [id number] with the patient obtaining my history and physical, other half the time spent going over the plan of care with the patient and implementing plan of care. I did discuss the plan of care with my attending, Dr. Doll; she is in agreement. FREDDIE NGUYEN NP ADDENDUM: Mr. Browning is a 36-year-old male with history of multiple psychiatric problems who also is diabetic type 1 and he presents with DKA. He had not been taking his insulin since he was trying to save money on his medications. He is going to be placed in the intensive care unit on insulin drip. For further details of the patient's presentation and plan, please see history and physical dictated by Jonn Nguyen NP, on 09/01/16, with which I agree. APARNA DOLL MD [id number]/CPS #: [id number]/CPS #: [id number] SINA
--- NOTE | 2016-09-01 23:14 | ED ---
Cliff Sharpe Alok, scribed for Morgan Olmos MD on 09/01/16 at 1329 . HPI Diabetic - HPI Summary HPI Summary: 36M with IDDM presents to the ED with hyperglycemia of 273H. Pt notes SOB when standing, as well as dizziness, lightheadedness and LARSON for the past 3 days. Pt also notes burning feeling in throat currently. Pt notes vomiting last night. Pt notes chest tightness somewhat currently. Pt notes recent stress lately due to DUI. Pt states he took 20 units of homologue this morning. Pt states his insulin has been off schedule lately due to insurance issues. PMHx includes Type II IDDM, h/o ketoacidosis, HTN, PTSD, Bipolarism, Depression and Anxiety. Pt denies h/o STEMI or stents. Pt states that he is a recovering cocaine addict. Pt states he smoke crack-cocaine recently. - History Of Current Complaint Chief Complaint: EDGeneral Hx Obtained From: Patient Onset/Duration: Lasting Days, Still Present Timing: Constant Severity Initially: Moderate Severity Currently: Moderate Aggravating: Street Drugs Associated Signs & Symptoms: Shortness of Breath, Vomiting Related History: DM II, Hx of DKA, Insulin Requiring - Allergies/Home Medications Allergies/Adverse Reactions: Allergies Allergy/AdvReac Type Severity Reaction Status Date / Time No Known Allergies Allergy Verified 06/15/16 13:18 PMH/Surg Hx/FS Hx/Imm Hx Endocrine/Hematology History: Reports: Hx Diabetes Cardiovascular History: Reports: Hx Hypertension Musculoskeletal History: Reports: Hx Back Problems - says has h\o bulging disks (two) for years Denies: Hx Arthritis, Hx Osteoporosis Sensory History: Reports: Hx Contacts or Glasses Denies: Hx Cataracts, Hx Hearing Aid Opthamlomology History: Reports: Hx Contacts or Glasses Denies: Hx Cataracts Neurological History: Reports: Hx Migraine Denies: Hx Dementia, Hx Developmental Delay, Hx Seizures, Hx Transient Ischemic Attacks (TIA) Psychiatric History: Reports: Hx Anxiety, Hx Attention Deficit Hyperactivity Disorder, Hx Depression, Hx Panic Disorder, Hx Post Traumatic Stress Disorder, Hx Inpatient Treatment, Hx Bipolar Disorder, Hx Suicide Attempt, Hx Substance Abuse Denies: Hx Eating Disorder, Hx of Violent Episodes Against Others - Immunization History Date of Tetanus Vaccine: UTD Date of Influenza Vaccine: UTD Infectious Disease History: No Infectious Disease History: Denies: Hx Clostridium Difficile, Hx Hepatitis, Hx Human Immunodeficiency Virus (HIV), Hx of Known/Suspected MRSA, Hx Shingles, Hx Tuberculosis, History Other Infectious Disease, Traveled Outside the [place] in Last 30 Days - Family History Known Family History: Positive: Diabetes, Other - substance abuse, mental health problems - Social History Occupation: Unemployed Lives: With Family Alcohol Use: Rare Substance Use Type: Reports: None, Other 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 Hx Tobacco Use: Yes Smoking Status (MU): Former Smoker Type: Cigarettes Have You Smoked in the Last Year: No Review of Systems Negative: Fever, Chills Negative: Erythema Positive: Sore Throat Positive: Chest Pain Positive: Shortness Of Breath. Negative: Cough Positive: Vomiting, Nausea. Negative: Abdominal Pain Negative: dysuria, hematuria Negative: Myalgia, Edema Negative: Rash Neurological: Other - Dizziness, lightheadedness All Other Systems Reviewed And Are Negative: Yes Physical Exam - Summary Physical Exam Summary: Constitutional: Well-developed, Well-nourished, Alert. (-) Distressed Skin: Warm, Dry HENT: Normocephalic; Atraumatic Eyes: Conjunctiva normal Neck: Musculoskeletal ROM normal neck. (-) JVD, (-) Stridor, (-) Tracheal deviation Cardio: Tachycardic; Intact distal pulses; The pedal pulses are 2+ and symmetric. Radial pulses are 2+ and symmetric. (-) Murmur Pulmonary/Chest wall: Effort normal. (-) Respiratory distress, (-) Wheezes, (-) Rales Abd: Soft, (-) Tenderness, (-) Distension, (-) Guarding, (-) Rebound Musculoskeletal: (-) Edema Lymph: (-) Cervical adenopathy Neuro: Alert, Oriented x3 Psych: Mood and affect Normal Triage Information Reviewed: Yes Vital Signs On Initial Exam: Initial Vitals Temp Pulse Resp BP Pulse Ox 97.8 F 116 20 148/98 98 09/01/16 12:46 09/01/16 12:46 09/01/16 12:46 09/01/16 12:46 09/01/16 12:46 Vital Signs Reviewed: Yes - Gomez Coma Scale Coma Scale Total: 15 Diagnostics - Vital Signs Vital Signs Temp Pulse Resp BP Pulse Ox 09/01/16 12:58 97.3 F 107 18 143/92 99 06/20/17 12:46 97.8 F 116 20 148/98 98 - Laboratory Lab Results: Lab Results 09/01/16 Range/Units 12:57 POC Glucose (mg/dL) 273 H (74-106) mg/dL Result Diagrams: 09/01/16 14:25 09/01/16 14:25 Lab Statement: Any lab studies that have been ordered have been reviewed, and results considered in the medical decision making process. Diabetic Course/Dx - Course Assessment/Plan: Discussed patient care with Dr. Yan (Credit Control Clerk) @ [address] [facility] Hospitalist can admit pt to [facility] - Diagnoses Provider Diagnoses: DKA (diabetic ketoacidoses) - Physician Notifications Discussed Care Of Patient With: Alfreda Reich - Will admit pt to [facility] Time Discussed With Above Provider: 15:21 - Critical Care Time Critical Care Time: 30-74 min - 45 min Discharge - Discharge Plan Condition: Stable Disposition: ADMITTED TO [facility] documentation as recorded by the Cliff florez Alok accurately reflects the service I personally performed and the decisions made by Amarilis rocha Jerry, MD.
--- NOTE | 2016-09-01 23:18 | HP ---
HISTORY AND PHYSICAL: * ADDENDUM: Mr. Browning is a 36-year-old male with history of multiple psychiatric problems who also is diabetic type 1 and he presents with DKA. He had not been taking his insulin since he was trying to save money on his medications. He is going to be placed in the intensive care unit on insulin drip. For further details of the patient's presentation and plan, please see history and physical dictated by Jonn Nguyen NP, on 09/01/16, with which I agree. [id number]/[facility] #: [id number] [facility]
[2016-09-01 23:25] LABS: Urine Bacteria Absent (Absent); Urine Bilirubin Negative (Negative); Urine Glucose 3+(>=500 mg/dL) (Negative); Urine Nitrite Negative (Negative)
[2016-09-01 23:51] LABS: Benzodiazepine Urine Screen None Detected (None Detect)
[2016-09-02] MEDS: D5W 1/2 NS KCl 20 Meq 1000 ML* 1,000 ML IV SCH ×2 (00:10→07:14)
[2016-09-02 01:43] LABS: BUN/Creatinine Ratio 13.5 (8-20); Calcium 7.9 mg/dL (8.6-10.3); EGFR African American 95.9 (>60); EGFR Non-African American 74.5 (>60); Potassium 3.8 mmol/L (3.5-5.0)
[2016-09-02 05:38] LABS: Hematocrit 39 % (42-52); Hemoglobin 13.4 g/dl (14.0-18.0); Mean Corpuscular HGB Conc 34 g/dl (31-36); Mean Corpuscular Hemoglobin 32 pg (27-31); Mean Corpuscular Volume 93 fL (80-94); Mean Platelet Volume 7 um3 (7.4-10.4); Red Blood Count 4.24 10^6/ul (4.0-5.4); Red Cell Distribution Width 14 % (10.5-15); White Blood Count 5.9 10^3/ul (3.5-10.8)
[2016-09-02 05:49] LABS: BUN/Creatinine Ratio 13.8 (8-20); EGFR African American 97.9 (>60); EGFR Non-African American 76.1 (>60); Potassium 3.6 mmol/L (3.5-5.0)
[2016-09-02] MEDS: Heparin VIAL(*) 5000 UNITS/ML VIAL (FIVE THOUSAND) SUBCUT SCH (06:11)
[2016-09-02] MEDS: Gabapentin CAP(*) 300 MG PO SCH (08:56)
[2016-09-02] MEDS: Diazepam TAB(*) 5 MG PO SCH (08:56)
[2016-09-02] MEDS ORDERED: Insulin GLARGINE(*) 1 UNITS UNIT SUBCUT ONE (08:57)
[2016-09-02] MEDS ORDERED: Insulin LISPRO* 1 UNITS UNIT SUBCUT ONE (08:58)
[2016-09-02] MEDS ORDERED: Dextrose 50% Syringe 50 ML* 25 GM/50 ML SYRINGE IV PUSH PRN ×2 (08:58→08:59)
[2016-09-02] MEDS ORDERED: FLUoxetine CAP* 20 MG PO SCH (09:00)
[2016-09-02] MEDS ORDERED: Lisinopril TAB* 10 MG PO SCH (09:00)
[2016-09-02] MEDS: busPIRone TAB* 15 MG PO SCH (11:22)
[2016-09-02] MEDS ORDERED: CMC:Lurasidone (NF) 40 MG TAB PO SCH (11:26)
[2016-09-02] MEDS: Insulin LISPRO* 1 UNITS UNIT SUBCUT SCH ×2 (11:36→12:26)
[2016-09-02 13:26] VITALS: BP 142/80
--- NOTE | 2016-09-03 08:46 | DS ---
CC: Dr. Woodruff * DISCHARGE SUMMARY: DATE OF ADMISSION: 09/01/16 DATE OF DISCHARGE: 09/02/16 PRIMARY CARE PROVIDER: Dr. Woodruff. DISCHARGE DIAGNOSIS: Diabetic ketoacidosis. SECONDARY DIAGNOSES: 1. Diabetes type 1. 2. Bipolar. 3. History of PTSD. 4. Hypertension. 5. Anxiety. MEDICATIONS AT DISCHARGE: Unchanged from the patient's prior home medications that include: 1. Valium 10 mg at bedtime and 5 mg b.i.d. p.r.n. 2. Prozac 20 mg daily. 3. Neurontin 600 mg 3 times a day. 4. Insulin Levemir 75 units daily. 5. Insulin lispro sliding scale. 6. Lisinopril 40 mg daily. 7. Latuda 40 mg at bedtime. 8. BuSpar 15 mg b.i.d. 9. Trazodone 100 mg at bedtime. LABORATORY DATA AND STUDIES PERFORMED DURING THE HOSPITAL STAY: On 09/02/16, white blood cell count of 5.9, hemoglobin 13.4, hematocrit 39, and platelets 264. Sodium was 135, potassium 3.6, chloride 106, carbon dioxide 22, BUN 15, creatinine 1.09. HOSPITALIZATION COURSE: Dany Browning is a 36-year-old male with history of bipolar disease as well as diabetes type 1, who presented in mild DKA to the hospital with complaints of nausea, vomiting, and not feeling well for a couple of days. Patient also stated that he has had problems with co-pays for his insulin and he decided not to take his insulin Levemir and compensated with higher doses of Humalog. He came in to the ED and he was diagnosed with DKA. He was treated in the intensive care unit overnight on insulin drip, and in the morning on 09/02/16 he was switched back to his long-acting insulin. Patient also was seen by his social media marketing analyst who confirmed that patient, in fact, is eligible for Medicaid and his Medicaid is active. He already has his prescribed insulin Levemir to be picked up at [facility]. He was also given a prescription for a glucometer and test strips if needed. At discharge, he is recommended to follow up with Dr. Woodruff in approximately 4 to 7 days. PHYSICAL EXAMINATION AT THE TIME OF DISCHARGE: Blood pressure of 142/80, heart rate 82 and regular, respiratory rate 22, oxygen saturation 98% on room air, temperature 97.5. General: The patient is a very pleasant 36-year-old male who is in no acute distress. Alert, awake, and oriented x3. HEENT: Head: Atraumatic, normocephalic. Eyes: Pupils equal, reactive to light and accommodation. Oropharynx clear. Mucosa moist. NECK: Supple. No JVD. No bruits bilaterally. Cardiovascular: Regular rate and rhythm. No murmur. Respiratory: Clear to auscultation bilaterally. Abdomen: Soft, nontender. Bowel sounds present in all 4 quadrats. Extremities: There is no edema. Pulses +2 bilaterally. No clubbing or cyanosis. Please note that this is a short summary of the patient's hospital stay. Please refer to further medical records for details. [id number]/CPS #: [id number] MTDD
== END 2016-09-02 13:38 | disposition home or self-care (01) ==
LOC: ED 12:38 → ICU 15:39 → INTOOBSV 15:39
PROVIDERS: ADMIT Internal Medicine; ATTEND Internal Medicine
DX: E10.10 Type 1 diabetes mellitus with ketoacidosis without coma (principal); Z79.4 Long term (current) use of insulin; F31.9 Bipolar disorder, unspecified; F43.10 Post-traumatic stress disorder, unspecified; I10 Essential (primary) hypertension; F41.9 Anxiety disorder, unspecified; Z79.899 Other long term (current) drug therapy; R11.2 Nausea with vomiting, unspecified; R06.02 Shortness of breath; Z87.891 Personal history of nicotine dependence
CPT/HCPCS: 36415; 80048; 80053; 80307; 81003; 81015; 82010; 82803; 83036; 83605; 83735; 84100; 84484; 85025; 94760; 96361; 96372; 96374; 96375; 99291; A9270-GY; G0378; J1644; J2060; J2405

== ENCOUNTER 2017-04-01 11:44 | Inpatient (IN) | payer OTHER ==
[2017-04-01 12:26] LABS: ABS Basophils 0.1 10^3/ul (0-0.2); ABS Eosinophils 0.1 10^3/ul (0-0.6); ABS Lymphocytes 1.8 10^3/ul (1.0-4.8); ABS Monocytes 0.6 10^3/ul (0-0.8); ABS Neutrophils 4.3 10^3/ul (1.5-7.7); ABS Nucleated RBC 0 10^3/ul; Eosinophil % 0.8 % (0-6); Hematocrit 49 % (42-52); Hemoglobin 16.9 g/dl (14.0-18.0); Lymphocyte % 26.5 % (25-47); Mean Corpuscular HGB Conc 35 g/dl (31-36); Mean Corpuscular Hemoglobin 31 pg (27-31); Mean Corpuscular Volume 89 fL (80-94); Mean Platelet Volume 8 um3 (7.4-10.4); Nucleated Red Blood Cells % 0.1; Platelet Count 317 10^3/ul (150-450); Red Blood Count 5.48 10^6/ul (4.0-5.4); Red Cell Distribution Width 13 % (10.5-15); White Blood Count 6.8 10^3/ul (3.5-10.8)
[2017-04-01 12:38] LABS: Urine Appearance Clear; Urine Blood Negative (Negative); Urine Color Yellow; Urine Ketones Negative (Negative); Urine Protein Negative (Negative); Urine Specific Gravity 1.016 (1.010-1.030); Urine Urobilinogen Negative (Negative)
[2017-04-01 12:43] LABS: EGFR Non-African American 106.6 (>60)
[2017-04-01] MEDS ORDERED: Al Hydrox/Mg Hydrox/Simet LIQ* 30 ML UDC PO PRN (14:45)
[2017-04-01] MEDS ORDERED: Acetaminophen TAB* 325 MG PO PRN (14:45)
--- NOTE | 2017-04-01 15:19 | ED ---
Maame Sharpe Thomas, scribed for Janak Fried MD on 04/01/17 at 1215 . Psychiatric Complaint - HPI Summary HPI Summary: The patient is a 37 year old male presenting to the emergency department complaining of suicidal ideation for a while that has worsened in the past four days. He has been stressed and overworked recently, and the neighbors called the police when he relapsed on alcohol four days ago. The patient is a Type I diabetic. - History Of Current Complaint Chief Complaint: EDMentalHealth Time Seen by Provider: 04/01/17 11:57 Hx Obtained From: Patient Onset/Duration: Gradual Onset, Lasting Days - about four days ago, he relapsed on alcohol., Still Present Timing: Days - Four Days Severity Initially: Moderate Severity Currently: Moderate Character: Depressed Aggravating Factor(s): Alcohol Use Alleviating Factor(s): Nothing Related History: Positive For: Prior Psychiatric Issues Has Suicidal: Reports: Thoughts Recent Stressor(s): Work - Allergies/Home Medications Allergies/Adverse Reactions: Allergies Allergy/AdvReac Type Severity Reaction Status Date / Time No Known Allergies Allergy Verified 06/15/16 13:18 PMH/Surg Hx/FS Hx/Imm Hx Previously Healthy: No Endocrine/Hematology History: Reports: Hx Diabetes Cardiovascular History: Reports: Hx Hypertension Denies: Hx Congestive Heart Failure Respiratory History: Denies: Hx Asthma, Hx Chronic Bronchitis, Hx Chronic Obstructive Pulmonary Disease (COPD), Hx Pneumonia GI History: Reports: Hx Gastroesophageal Reflux Disease Musculoskeletal History: Reports: Hx Back Problems - says has h\o bulging disks (two) for years Denies: Hx Arthritis, Hx Osteoporosis Sensory History: Reports: Hx Contacts or Glasses Denies: Hx Cataracts, Hx Hearing Aid Opthamlomology History: Reports: Hx Contacts or Glasses Denies: Hx Cataracts Neurological History: Reports: Hx Headaches, Hx Migraine Denies: Hx Dementia, Hx Developmental Delay, Hx Seizures, Hx Transient Ischemic Attacks (TIA) Psychiatric History: Reports: Hx Anxiety, Hx Attention Deficit Hyperactivity Disorder, Hx Depression, Hx Panic Disorder, Hx Post Traumatic Stress Disorder, Hx Inpatient Treatment, Hx Bipolar Disorder, Hx Suicide Attempt, Hx Substance Abuse Denies: Hx Eating Disorder, Hx of Violent Episodes Against Others - Immunization History Date of Tetanus Vaccine: UTD Date of Influenza Vaccine: UTD Infectious Disease History: No Infectious Disease History: Denies: Hx Clostridium Difficile, Hx Hepatitis, Hx Human Immunodeficiency Virus (HIV), Hx of Known/Suspected MRSA, Hx Shingles, Hx Tuberculosis, History Other Infectious Disease, Traveled Outside the [place] in Last 30 Days - Family History Known Family History: Positive: Diabetes, Other - substance abuse, mental health problems - Social History Alcohol Use: Rare Substance Use Type: Reports: None, Other 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 Hx Tobacco Use: Yes Smoking Status (MU): Former Smoker Type: Cigarettes Have You Smoked in the Last Year: No Review of Systems Negative: Fever Positive: Depressed, Other - Suicidal Ideation All Other Systems Reviewed And Are Negative: Yes Physical Exam - Summary Physical Exam Summary: General: well-appearing, no pain distress Skin: warm, color reflects adequate perfusion, dry Head: normal Eyes: EOMI, BABITA ENT: normal Neck: supple, nontender Respiratory: CTA, breath sounds present Cardiovascular: RRR Abdomen: soft, nontender Bowel: present Musculoskeletal: normal, strength/ROM intact Neurological: normal, sensory/motor intact, A&O x3 Psychological: Depressed. Triage Information Reviewed: Yes Vital Signs On Initial Exam: Initial Vitals Temp Pulse Resp BP Pulse Ox 98.2 F 91 18 164/108 99 04/01/17 11:50 04/01/17 11:50 04/01/17 11:50 04/01/17 11:50 04/01/17 11:50 Vital Signs Reviewed: Yes Diagnostics - Vital Signs Vital Signs Temp Pulse Resp BP Pulse Ox 04/01/17 11:50 98.2 F 91 18 164/108 99 - Laboratory Lab Results: Lab Results 04/01/17 04/01/17 04/01/17 Range/Units 12:10 12:10 12:10 WBC 6.8 (3.5-10.8) 10^3/ul RBC 5.48 H (4.0-5.4) 10^6/ul Hgb 16.9 (14.0-18.0) g/dl Hct 49 (42-52) % MCV 89 (80-94) fL MCH 31 (27-31) pg MCHC 35 (31-36) g/dl RDW 13 (10.5-15) % Plt Count 317 (150-450) 10^3/ul MPV 8 (7.4-10.4) um3 Neut % (Auto) 63.3 (38-83) % Lymph % (Auto) 26.5 (25-47) % [place] % (Auto) 8.3 (1-9) % Eos % (Auto) 0.8 (0-6) % Baso % (Auto) 1.1 (0-2) % Absolute Neuts (auto) 4.3 (1.5-7.7) 10^3/ul Absolute Lymphs (auto) 1.8 (1.0-4.8) 10^3/ul Absolute Monos (auto) 0.6 (0-0.8) 10^3/ul Absolute Eos (auto) 0.1 (0-0.6) 10^3/ul Absolute Basos (auto) 0.1 (0-0.2) 10^3/ul Absolute Nucleated RBC 0 10^3/ul Nucleated RBC % 0.1 Sodium 134 (133-145) mmol/L Potassium 4.1 (3.5-5.0) mmol/L Chloride 103 (101-111) mmol/L Carbon Dioxide 23 (22-32) mmol/L Anion Gap 8 (2-11) mmol/L BUN 15 (6-24) mg/dL Creatinine 0.81 (0.67-1.17) mg/dL Est GFR ( Amer) 137.2 (>60) Est GFR (Non-Af Amer) 106.6 (>60) BUN/Creatinine Ratio 18.5 (8-20) Glucose 81 (70-100) mg/dL Calcium 9.9 (8.6-10.3) mg/dL Total Bilirubin 0.60 (0.2-1.0) mg/dL AST 15 (13-39) U/L ALT 17 (7-52) U/L Alkaline Phosphatase 54 (34-104) U/L Total Protein 7.4 (6.4-8.9) g/dL Albumin 4.3 (3.2-5.2) g/dL Globulin 3.1 (2-4) g/dL Albumin/Globulin Ratio 1.4 (1-3) TSH 3.35 (0.34-5.60) mcIU/mL Urine Color Urine Appearance Urine pH (5-9) Ur Specific [place] (1.010-1.030) Urine Protein (Negative) Urine Ketones (Negative) Urine Blood (Negative) Urine Nitrate (Negative) Urine Bilirubin (Negative) Urine Urobilinogen (Negative) Ur Leukocyte Esterase (Negative) Urine Glucose (Negative) Salicylates < 2.50 (<30) mg/dL Urine Opiates Screen None detected (None Detect) Acetaminophen < 15 mcg/mL Ur Barbiturates Screen None detected (None Detect) Ur Phencyclidine Scrn None detected (None Detect) Ur Amphetamines Screen None detected (None Detect) U Benzodiazepines Scrn None detected (None Detect) Urine Cocaine Screen None detected (None Detect) U Cannabinoids Screen None detected (None Detect) Serum Alcohol < 10 (<10) mg/dL 04/01/17 Range/Units 12:10 WBC (3.5-10.8) 10^3/ul RBC (4.0-5.4) 10^6/ul Hgb (14.0-18.0) g/dl Hct (42-52) % MCV (80-94) fL MCH (27-31) pg MCHC (31-36) g/dl RDW (10.5-15) % Plt Count (150-450) 10^3/ul MPV (7.4-10.4) um3 Neut % (Auto) (38-83) % Lymph % (Auto) (25-47) % [place] % (Auto) (1-9) % Eos % (Auto) (0-6) % Baso % (Auto) (0-2) % Absolute Neuts (auto) (1.5-7.7) 10^3/ul Absolute Lymphs (auto) (1.0-4.8) 10^3/ul Absolute Monos (auto) (0-0.8) 10^3/ul Absolute Eos (auto) (0-0.6) 10^3/ul Absolute Basos (auto) (0-0.2) 10^3/ul Absolute Nucleated RBC 10^3/ul Nucleated RBC % Sodium (133-145) mmol/L Potassium (3.5-5.0) mmol/L Chloride (101-111) mmol/L Carbon Dioxide (22-32) mmol/L Anion Gap (2-11) mmol/L BUN (6-24) mg/dL Creatinine (0.67-1.17) mg/dL Est GFR ( Amer) (>60) Est GFR (Non-Af Amer) (>60) BUN/Creatinine Ratio (8-20) Glucose (70-100) mg/dL Calcium (8.6-10.3) mg/dL Total Bilirubin (0.2-1.0) mg/dL AST (13-39) U/L ALT (7-52) U/L Alkaline Phosphatase (34-104) U/L Total Protein (6.4-8.9) g/dL Albumin (3.2-5.2) g/dL Globulin (2-4) g/dL Albumin/Globulin Ratio (1-3) TSH (0.34-5.60) mcIU/mL Urine Color Yellow Urine Appearance Clear Urine pH 5.0 (5-9) Ur Specific [place] 1.016 (1.010-1.030) Urine Protein Negative (Negative) Urine Ketones Negative (Negative) Urine Blood Negative (Negative) Urine Nitrate Negative (Negative) Urine Bilirubin Negative (Negative) Urine Urobilinogen Negative (Negative) Ur Leukocyte Esterase Negative (Negative) Urine Glucose Negative (Negative) Salicylates (<30) mg/dL Urine Opiates Screen (None Detect) Acetaminophen mcg/mL Ur Barbiturates Screen (None Detect) Ur Phencyclidine Scrn (None Detect) Ur Amphetamines Screen (None Detect) U Benzodiazepines Scrn (None Detect) Urine Cocaine Screen (None Detect) U Cannabinoids Screen (None Detect) Serum Alcohol (<10) mg/dL Result Diagrams: 04/01/17 12:10 04/01/17 12:10 Lab Statement: Any lab studies that have been ordered have been reviewed, and results considered in the medical decision making process. Course/Dx - Course Course Of Treatment: Medications reviewed. BP noted and advised follow up with PMD. admit mhu - Differential Dx/Clinical Impression Provider Diagnosis: Uncontrolled hypertension, Mental health problem Discharge - Discharge Plan Condition: Stable Disposition: PSYCHIATRIC FACILITY-[facility] Referrals: Nettie Petty MD [Primary Care Provider] - The documentation as recorded by the Maame florez Thomas accurately reflects the service I personally performed and the decisions made by me, Janak Fried MD.
[2017-04-01] MEDS ORDERED: Insulin LISPRO* 1 UNITS UNIT SUBCUT SCH ×2 (16:30→17:23)
[2017-04-01] MEDS: Insulin LISPRO* 1 UNITS UNIT SUBCUT SCH ×2 (17:35→17:42)
[2017-04-01] MEDS: Insulin GLARGINE(*) 1 UNITS UNIT SUBCUT SCH (18:57)
[2017-04-01] MEDS: Gabapentin CAP(*) 400 MG PO SCH (20:33)
[2017-04-02] MEDS: Insulin LISPRO* 1 UNITS UNIT SUBCUT SCH ×3 (07:58→17:34)
[2017-04-02] MEDS: Aspirin EC Low Dose* 81 MG TAB.EC PO SCH (09:19)
[2017-04-02] MEDS: Gabapentin CAP(*) 400 MG PO SCH ×4 (09:19→19:28)
[2017-04-02] MEDS: Lisinopril TAB* 10 MG PO SCH (09:20)
[2017-04-02] MEDS: Hydrochlorothiazide TAB* 25 MG PO SCH (09:20)
--- NOTE | 2017-04-02 10:53 | ADMNOTE ---
History - Objective HPI: Psychiatric Attending History and Physical NAME: Dany Browning : 1980 AGE: 37 PROVIDER: Dr. Partha Campbell DATE OF ADMISSION: 04/01/2017 JUSTIFICATION FOR ADMISSION: Patient has long history of polysubstance abuse, mood instability, poor impulse control and suicidal ideation. He was brought to ED by father. patient reports that his substance use has been out of control and that he has been abusing both adderall and alcohol. He reports severe mood instability, and recurrent thoughts of suicide with plan to overdose on his insulin. He fears that he will end his life if he does not receive help. He is admitted on a voluntary basis for safety and stabalization as he is gravely disabled and is at risk for being danger to self. CHIEF COMPLAINT: "I'm at the end of my rope. I need help. I'm not safe" HISTORY OF THE PRESENT ILLNESS: Patient is a 37 yo father of 3 with a history of polysubstance abuse, bipolar disorder and multiple past psychiatric admissions for affective instability and suicidality. Patient has been living with opioid addicted girlfriend and her two children for past year. He is court mandated to attend outpatient substance abuse/ mental health treatment to satisfy DUI conviction which occurred in Nov 2016. He is seeing counselor Destin at [facility] in [facility] and has been receiving medication management for his psychiatric illness by his PCP. Patient reports that his last psychiatric admission was at [facility] in [place] in August 2016 for depression and near suicide attempt by CO poisoning. patient was discharged on [place] which he took up until last month when his PCP discontinued it. He reports it was not effective for his mood swings and impulse control problems. However, he acknowledges that he was using drugs during this time. Patient acknowleges that he has not been honest with his counselor as he has been abusing alcohol daily and Adderall (prescribed for his girlfriend ) taking up to 12 adderall tablets at one time. last week neighbors called police as patient was intoxicated and causing a scene. Patient was arrested and charged with risk of inijury to a minor. He reports after being arrested he was brought to hospital in [facility]note 3[facility] at his request to be checked medically . patient was released from hospital and has pending court dates . Girlfriend broke up with him and does not want him to return. Having no place to live patient returned to parents home where he has been living for past 5 days. He reports that he has not used drugs or alcohol during these five days. 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 Patient reports that he has been increasingly depressed, ruminating daily about suicide with specific plan to either overdose himself with his insulin or poison himself with carbon monoxide. He further reports irritability, severe impulse control problems, explosive temper, intense dysphoria, periods during which he feels expansive, invincible and more prone to take risks without considering the consequences. Patient feels unsafe. he reports that he attempted to get the police to shoot him when he was being arrested. Patient is admitted on voluntary status for mood stabalization and to provide for his safety until suicidal ideation has remitted. PAST PSYCHIATRIC HISTORY: Patient reports that wanda had multiple inpatient psychiatric admissions beginning in 2008 (age 28) at [facility] for depression and suicidal behavior/ideation. He denies any inpatient substance abuse rehab treatment. He did live in a [facility] for a brief time in 2011. He has reveived outpatient services in past at [facility]. He reports having been diagnosed there with Bipolar Disorder, PTSD. He reports numerous medication trials including Depakote, [place], and many antidepressants SUBSTANCE ABUSE HISTORY: Began drinking alcohol at the age of 14. he further reports that he has abused everything except heroine. he endorses history of abusing alcohol, marijuana, cocaine, bath salts and miles/MDMA. He quite smoking in 2011. PAST MEDICAL HISTORY: includes obesity, Diabetes Mellitus type II, Hypertension, Lower bqack pain secondary to disc herniations. His primary care physician is Dr. Acosta. CURRENT MEDICATIONS: Glargine Insulin 80 units qhs Lispro insulin sliding scale AC Aspirin 81 mg qd Gabapentin 800 mg QID ALLERGIES: no Known Drug allergies FAMILY PSYCHIATRIC HISTORY: Father ex alcoholic now sober; sister with depression and anxiety. FAMILY/PSYCHOSOCIAL HISTORY: Patient grew up in [facility] [place] [facility]. he reports he was a straight A student, attended [employer] college and obtained a 3.95 GPA earlning an [employer] in business. He was for 7 years until 2011. he has 3 children whom he has only infrequent contact with. his children live in [facility] with their mother and mother's boyfriend. Patient has an older brother and two older sisters. 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 REVIEW OF SYSTEMS: all noncontributory per hospitalist Dr. Janak Quiroz's H and P performed on 04/01/2017 PHYSICAL EXAMINATION: UNREMARKABLE (NORMAL PHYSICAL EXAMINATION) per hospitalist Dr. Janak Quiroz's H and P performed on 04/01/2017 MENTAL STATUS EXAMINATION: Well developed and nourished 37 year old man with stocky build.. patient was dressed casually and neatly His hair was short cropped and he was clean shaved. Patient was well related and made good eye contact. speech was of normal rate and volume. not pressured. normal fluency and spontaneity. Mood described as depressed, irritable and "impulsive" affect was full range.no evidence of blunting or flattening. normal amplitude. Thought process goal directed and coherent. Thought content: patient shows no evidence of psychotic symptoms. He denies AH,VH. no evidence of paranoia, delusions, obsessions, or compulsions. patient's talked mostly about his unstable mood which fluctuates from angry to sad to elevated. he freely admitted to long standing substance use and appeared genuine in his desire to stop using drugs. He also talked of his severe impulse control probelms, racing thoughts, tendency to become reckless and not care what the consequences of his actions are when he is this way. during these periods he describes using large amounts of drugs. Alert and fully oriented in all spheres. patient impresses me as having normal intellectual capacity. insight appears fairly good from this interview. judgment varies. at present he is excercising good judgment but historically he has shown poor judgment likely in the context of being intoxicated, or related to personality flaws or episodes of mood disorder. LABORATORY DATA: Laboratory Last Values WBC 6.8 10^3/ul (3.5-10.8) 04/01/17 12:10 RBC 5.48 10^6/ul (4.0-5.4) H 04/01/17 12:10 Hgb 16.9 g/dl (14.0-18.0) 04/01/17 12:10 Hct 49 % (42-52) 04/01/17 12:10 MCV 89 fL (80-94) 04/01/17 12:10 MCH 31 pg (27-31) 04/01/17 12:10 MCHC 35 g/dl (31-36) 04/01/17 12:10 RDW 13 % (10.5-15) 04/01/17 12:10 Plt Count 317 10^3/ul (150-450) 04/01/17 12:10 MPV 8 um3 (7.4-10.4) 04/01/17 12:10 Neut % (Auto) 63.3 % (38-83) 04/01/17 12:10 Lymph % (Auto) 26.5 % (25-47) 04/01/17 12:10 [place] % (Auto) 8.3 % (1-9) 04/01/17 12:10 Eos % (Auto) 0.8 % (0-6) 04/01/17 12:10 Baso % (Auto) 1.1 % (0-2) 04/01/17 12:10 Absolute Neuts (auto) 4.3 10^3/ul (1.5-7.7) 04/01/17 12:10 Absolute Lymphs (auto) 1.8 10^3/ul (1.0-4.8) 04/01/17 12:10 Absolute Monos (auto) 0.6 10^3/ul (0-0.8) 04/01/17 12:10 Absolute Eos (auto) 0.1 10^3/ul (0-0.6) 04/01/17 12:10 Absolute Basos (auto) 0.1 10^3/ul (0-0.2) 04/01/17 12:10 Absolute Nucleated RBC 0 10^3/ul 04/01/17 12:10 Nucleated RBC % 0.1 04/01/17 12:10 Sodium 134 mmol/L (133-145) 04/01/17 12:10 Potassium 4.1 mmol/L (3.5-5.0) 04/01/17 12:10 Chloride 103 mmol/L (101-111) 04/01/17 12:10 Carbon Dioxide 23 mmol/L (22-32) 04/01/17 12:10 Anion Gap 8 mmol/L (2-11) 04/01/17 12:10 BUN 15 mg/dL (6-24) 04/01/17 12:10 Creatinine 0.81 mg/dL (0.67-1.17) 04/01/17 12:10 Est GFR ( Amer) 137.2 (>60) 04/01/17 12:10 Est GFR (Non-Af Amer) 106.6 (>60) 04/01/17 12:10 BUN/Creatinine Ratio 18.5 (8-20) 04/01/17 12:10 Glucose 81 mg/dL (70-100) 04/01/17 12:10 POC Glucose (mg/dL) 282 mg/dL (70-100) H 04/02/17 17:04 Calcium 9.9 mg/dL (8.6-10.3) 04/01/17 12:10 Total Bilirubin 0.60 mg/dL (0.2-1.0) 04/01/17 12:10 AST 15 U/L (13-39) 04/01/17 12:10 ALT 17 U/L (7-52) 04/01/17 12:10 Alkaline Phosphatase 54 U/L (34-104) 04/01/17 12:10 Total Protein 7.4 g/dL (6.4-8.9) 04/01/17 12:10 Albumin 4.3 g/dL (3.2-5.2) 04/01/17 12:10 Globulin 3.1 g/dL (2-4) 04/01/17 12:10 Albumin/Globulin Ratio 1.4 (1-3) 04/01/17 12:10 TSH 3.35 mcIU/mL (0.34-5.60) 04/01/17 12:10 Urine Color Yellow 04/01/17 12:10 Urine Appearance Clear 04/01/17 12:10 Urine pH 5.0 (5-9) 04/01/17 12:10 Ur Specific [place] 1.016 (1.010-1.030) 04/01/17 12:10 Urine Protein Negative (Negative) 04/01/17 12:10 Urine Ketones Negative (Negative) 04/01/17 12:10 Urine Blood Negative (Negative) 04/01/17 12:10 Urine Nitrate Negative (Negative) 04/01/17 12:10 Urine Bilirubin Negative (Negative) 04/01/17 12:10 Urine Urobilinogen Negative (Negative) 04/01/17 12:10 Ur Leukocyte Esterase Negative (Negative) 04/01/17 12:10 Urine Glucose Negative (Negative) 04/01/17 12:10 Salicylates < 2.50 mg/dL (<30) 04/01/17 12:10 Urine Opiates Screen None detected (None Detect) 04/01/17 12:10 Acetaminophen < 15 mcg/mL 04/01/17 12:10 Ur Barbiturates Screen None detected (None Detect) 04/01/17 12:10 Ur Phencyclidine Scrn None detected (None Detect) 04/01/17 12:10 Ur Amphetamines Screen None detected (None Detect) 04/01/17 12:10 U Benzodiazepines Scrn None detected (None Detect) 04/01/17 12:10 Urine Cocaine Screen None detected (None Detect) 04/01/17 12:10 U Cannabinoids Screen None detected (None Detect) 04/01/17 12:10 Serum Alcohol < 10 mg/dL (<10) 04/01/17 12:10 IMPRESSION: 37 yo man with history of bipolar disorder, polysubstance abuse, recurrent suicidal gestures/ideation presents to the hosptal with suicidal ideation and plan to overdose on his insulin which occurs in the context of alcohol and adderall abuse, recent DUI, recent arrest for risk of injury to minor which resulted in girlfriend breaking up with patient, and upcoming court dates. Patient has further history of unstable interpersonal relationships, suicidal threats and gestures especially when faced with negative social consequences of his behavior, high risk behaviors, poor impulse control. Patient does appear to have mood instability and suicidal ideation and would benefit from inpatient admission in [facility] to stabalize his mood. I wonder whether patient's admission also is related to avoiding the consequences of the legal system. I am unclear whether he is on parole but he obviously is facing charges for DUI as well as for recent arrest for risk of injury to minor. DIAGNOSES: Bipolar disorder unspecified polysubstance dependence including: Amphetamine Use disorder Alcohol Use Disorder unspecified Personality disorder (borderline traits) PLAN: admit to [facility] on Q 15 min observation. patient is voluntary individual, group and milieu therapies fingersticks AC and QHS Insulin Lispro AC per sliding scale Insulin Glargine 80 units QHS Aspirin 81 mg QD Gabapentin 800 mg QID for mood stabalization Start Trileptal 300 mg BID for bipolar mood disorder. will not use an atypical antipsychotic in this patient due to diabetes and complications of metabolic complications. Naltrexone 50 mg qhs to reduce insulin craving and binging. increase data base by speaking with PCP, therapist and court Lab Results: Laboratory Tests 04/01/17 04/02/17 04/02/17 17:13 07:50 08:47 POC Glucose (mg/dL) 168 H 52 L 143 H
[2017-04-02] MEDS: Insulin GLARGINE(*) 1 UNITS UNIT SUBCUT SCH (18:48)
[2017-04-02] MEDS: traZODone TAB* 100 MG PO SCH (19:29)
[2017-04-02] MEDS: chlorproMAZINE TAB* 50 MG PO PRN (19:29)
[2017-04-02] MEDS: Naltrexone TAB* 50 MG TAB PO SCH (19:30)
[2017-04-02] MEDS: OXcarbazepine TAB(*) 300 MG PO SCH (19:32)
[2017-04-03] MEDS: Insulin LISPRO* 1 UNITS UNIT SUBCUT SCH ×4 (07:44→17:39)
[2017-04-03] MEDS ORDERED: Influenza VAC *QUAD* 2017-18* 0.5 ML SYRINGE IM ONE (09:00)
[2017-04-03] MEDS ORDERED: Pneumococcal *Vac Polyvalent 0.5 ML VIAL IM ONE (09:00)
[2017-04-03] MEDS: Gabapentin CAP(*) 400 MG PO SCH ×4 (09:10→20:59)
[2017-04-03] MEDS: OXcarbazepine TAB(*) 300 MG PO SCH ×2 (09:10→21:13)
[2017-04-03] MEDS: Hydrochlorothiazide TAB* 25 MG PO SCH (09:12)
[2017-04-03] MEDS: Lisinopril TAB* 10 MG PO SCH (09:12)
[2017-04-03] MEDS: Aspirin EC Low Dose* 81 MG TAB.EC PO SCH (09:12)
[2017-04-03] MEDS: chlorproMAZINE TAB* 50 MG PO PRN ×2 (09:46→18:36)
[2017-04-03] MEDS ORDERED: Mouth Piece, Nicotine* 1 EACH CARTRIDGE INH PRN (13:17)
--- NOTE | 2017-04-03 15:15 | PN ---
Subjective - Subjective Date of Service: 04/03/17 Service Type: 74684 Hosp care 15 min low complexity Subjective: Rosey is calm and polite. He is laying face down on the bed in his room, taking a break from working on the MMPI, and states that his new medications are making him slightly sedated, but otherwise are tolerable. He denies SI and states "I just need a break from everything and to start working on myself a bit." Rosey self-describes as a "brittle diabetic" and I understand his blood glucose values so far today have fluctuated between 52 and 263. He appropriately requests hospitalist medical consultation for this issue. He also requests nicotine replacement therapy as he is a 1 ppd smoker. The patient has been adherent with milieu treatment expectations and has no acute concerns at this time. Objective - Appearance Appearance: Obese Dysmorphic Features: No Hygiene: Normal Grooming: Fairly Well Kept - Behavior Psychomotor Activities: Abnormal-Decreased Exhibits Abnormal Movement: No - Attitude and Relatedness Attitude and Relatedness: Cooperative Eye Contact: Poor - Speech Quality: Unpressured Latencies: Long Quantity: Terse - Mood Patient's Decription of Mood: "Okay" - Affect Observed Affect: Fair Affect Consistent with: Euthymia - Thought Process Patient's Thought Process: Coherent Thought Content: No Passive Wish, No Suicidal Planning, No Homicidal Ideation, No Paranoid Ideation - Sensorium Experiencing Hallucinations: No, Sensorium is Clear Type of Hallucinations: Visual: No, Auditory: No, Command: No - Level of Consciousness Level of Consciousness: Alert Orientation: Yes Intact, Yes Orientated to Time, Yes Orientated to Place, Yes Orientated to Person - Impulse Control Impulse Control: Tenuous - Insight and Judgement Insight and Judgement: Fair - Group Participation Particating in Group Activities: Yes - Medication Management Medication Management Adherence: Yes Assessment - Assessment Merits Inpatient Hospitalization: For Immediate Safety, For Stabilization Inpatient DSM-IV Dx: Unspecified Bipolar DO Clinical Impression: 37 y.o. single, white, recently homeless, semi-employed male with a history of episodic mood instability and ongoing substance misuse patterns who was brought to the hospital on a voluntary basis by his father seeking inpatient care for suicidal depression. Plan - Plan Treatment Plan: Name: ROSEY LUNDBERG Birthdate: 1980 [id number] The patient remains on his outpatient regimen of gabapentin, HCTZ, lantus insulin, lisinopril and sliding scale regular insulin coverage. We have added trials of oxcarbazapine and trazodone for mood instability and insomnia respectively. We will order Hospitalist consult for assistance with diabetic management and nicotine replacement therapy. Await results of MMPI testing. Continue intensive treatment in a locked and secured setting. Continued Medication Management: Different Medication Medications: Current Medications Acetaminophen (Tylenol Tab*) 650 mg PO Q4H PRN PRN Reason: for pain; or Temp >101 F Last Admin: 04/03/17 09:11 Dose: 650 mg Al Hydrox/Mg Hydrox/Simethicone (Maalox Plus*) 30 ml PO Q4H PRN PRN Reason: INDIGESTION Aspirin (Aspirin Ec Low Dose*) 81 mg PO DAILY [facility] Last Admin: 04/03/17 09:12 Dose: 81 mg Chlorpromazine HCl (Thorazine Tab*) 50 mg PO Q4H PRN PRN Reason: AGITATION Last Admin: 04/03/17 09:46 Dose: 50 mg Device (Nicotine Mouth Piece*) 1 each INH .USE WITH NICOTROL PRN PRN Reason: CRAVING Gabapentin (Neurontin Cap(*)) 800 mg PO QID [facility] Last Admin: 04/03/17 13:11 Dose: 800 mg Hydrochlorothiazide (Hydrodiuril Tab*) 12.5 mg PO DAILY [facility] Last Admin: 04/03/17 09:12 Dose: 12.5 mg Insulin Glargine (Lantus(*)) 80 units SUBCUT QPM [facility] Last Admin: 04/02/17 18:48 Dose: 80 units Insulin Human Lispro (Humalog*) 0 - 15 units SUBCUT 0730,1130,1630 [facility] PRN Reason: Protocol Last Admin: 04/03/17 11:55 Dose: 9 units Lisinopril (Prinivil Tab*) 10 mg PO DAILY [facility] PRN Reason: Protocol Last Admin: 04/03/17 09:12 Dose: 10 mg Naltrexone HCl (Naltrexone Tab*) 50 mg PO 2100 [facility] Last Admin: 04/02/17 19:30 Dose: 50 mg Nicotine (Nicotine Inhaler*) 10 mg INH Q2H PRN PRN Reason: CRAVING Nicotine (Nicotine Patch 21 Mg/24 Hr*) 1 patch TRANSDERM DAILY@0800 [facility] Nicotine Polacrilex (Nicotine Gum*) 2 mg PO Q2H PRN PRN Reason: CRAVING Oxcarbazepine (Trileptal Tab(*)) 300 mg PO BID@ [facility] Last Admin: 04/03/17 09:10 Dose: 300 mg Pharmacy Profile Note (Nicotine Patch Removal Note*) 1 note FOLLOW UP 2100 [facility] Trazodone HCl (Desyrel Tab*) 100 mg PO BEDTIME [facility] Last Admin: 04/02/17 19:29 Dose: 100 mg - Discharge Plan Discharge Plan: Inpatient Hospitalization
[2017-04-03] MEDS ORDERED: Dextrose 50% Syringe 50 ML* 25 GM/50 ML SYRINGE IV PUSH PRN (16:32)
[2017-04-03] MEDS ORDERED: Insulin GLARGINE(*) 1 UNITS UNIT SUBCUT SCH (16:33)
[2017-04-03] MEDS: Nicotine GUM* 2 MG PO PRN ×2 (16:52→18:35)
[2017-04-03] MEDS: Nicotine Inhaler* 10 MG AMP INH PRN ×2 (16:54→18:35)
[2017-04-03] MEDS: traZODone TAB* 100 MG PO SCH (20:59)
[2017-04-03] MEDS: Naltrexone TAB* 50 MG TAB PO SCH (20:59)
[2017-04-03] MEDS: Insulin GLARGINE(*) 1 UNITS UNIT SUBCUT SCH (21:00)
[2017-04-03] MEDS: Nicotine Patch Removal NOTE FOLLOW UP SCH (23:00)
--- NOTE | 2017-04-04 00:14 | CONS ---
CC: Dr. Petty, [facility] in [facility] MEDICINE CONSULTATION REPORT: DATE OF CONSULTATION: 04/03/17 PRIMARY CARE PHYSICIAN: Dr. Petty. ATTENDING PHYSICIAN: Gosia Lopez DO (dictation provided by Sugar Bowles NP) . REASON FOR CONSULTATION: Management of diabetes. HISTORY OF PRESENT ILLNESS: Mr. Browning is a 37-year-old male who was admitted to the mental health unit on 04/01/17 with concern for polysubstance abuse, mood instability, poor impulse control and suicidal ideation. Please see the dictated H and P from Dr. Campbell for complete details. Since admission, the patient has had labile blood sugars in the morning. He has been running as low as 53 and then up and greater than 200 during the rest of the day. The patient states that he has been recently diagnosed with type 1 diabetes. He has an intention to see an director of physician practices outpatient, but that appointment is yet to arrive. He normally takes 80 units of Lantus at nighttime with 10 units of Humalog at meals with sliding scale. Since being admitted, he has been on 80 units of Lantus at night with sliding scale without the 10 units standing with meals. He denies other complaints for me today. PAST MEDICAL HISTORY: 1. Type 1 diabetes. 2. Polysubstance abuse. 3. Suicidal ideation. 4. Depression. 5. Anxiety. 6. Hypertension. MEDICATIONS: Currently are: 1. Tylenol p.r.n. 2. Maalox Plus p.r.n. 3. Aspirin 81 mg p.o. daily. 4. Thorazine 50 mg p.o. q.4 hours p.r.n. 5. Gabapentin 800 mg p.o. 4 times a day. 6. Hydrochlorothiazide 12.5 mg p.o. daily. 7. Lantus 80 units subcutaneously q.p.m. 8. Lispro sliding scale with meals. 9. Lisinopril 10 mg p.o. daily. 10. Nicotine inhaler p.r.n. 11. Naltrexone 50 mg p.o. q.p.m. 12. Nicotine gum p.r.n. 13. Nicotine patch p.r.n. 14. Trileptal 300 mg b.i.d. 15. Trazodone 100 mg p.o. at bedtime. ALLERGIES: No known drug allergies. FAMILY HISTORY: Mother has history of hypertension. Father is diabetic. SOCIAL HISTORY: The patient denies any current alcohol or drug use that has been reported via his admission. He has 3 children. He states his surrogate decision makers are his parents. REVIEW OF SYSTEMS: A 14-point review of systems was completed with Mr. Browning, and all those not mentioned above were negative. PHYSICAL EXAM: Vital Signs: Temperature 98.3, pulse rate 108, respiratory rate 16, O2 saturation 98% on room air, blood pressure 154/85. General: Mr. Browning is sleeping in the bed when I arrived, he awakens easily. Neuro: He is alert. He is oriented x3. He moves all extremities equally. There is no facial asymmetry or focal weakness. Extraocular movements are intact. Heart: S1, S2. No murmur, rub, or gallop and regular. Lungs: Clear to auscultation bilaterally, no accessory muscle use and good aeration. Abdomen: Soft, nontender. Bowel sounds positive x4. Extremities: No cyanosis or edema. Skin : Intact. DIAGNOSTIC STUDIES/LAB DATA: On 04/01/17, WBC 6.8, hemoglobin 16.9, hematocrit 49, platelet count 317,000. Sodium 134, potassium 4.1, chloride 103, serum bicarbonate 23, BUN 15, creatinine 0.81, glucose 81. ASSESSMENT: Mr. Browning is an 37-year-old male with past medical history of type 1 diabetes and hypertension who presented to the hospital for polysubstance abuse and suicidal ideation and was admitted to behavioral health unit on . Our recommendations are as follows: 1. Type 1 diabetes: I recommend the patient resume his 10 units of standing lispro with meals in addition to his sliding scale. I think that with this, his daytime sugars will be better controlled. I plan to decrease his Lantus at night to 70 units q.p.m. given that we will be increasing the daytime short acting insulin. I think that likely his diet is dramatically reduced in terms of carbohydrate intake while inpatient and that therefore he will require less insulin overall. We will continue to monitor and adjust as needed. 2. Hypertension. Continue current regimen. His blood pressure is reasonably controlled. It is running over 150 and if it remains thus, the patient will need to consider adjusting that outpatient. 3. Suicidal ideation with depression, anxiety. Management per behavioral health unit. 4. Code status is full code. TIME SPENT: Approximately 45 minutes was spent in the consultation of this patient, more than half the time spent with the patient at the bedside reviewing the events leading up to and during this hospitalization, performing the physical examination, and reviewing my plan of care. SUGAR BOWLES NP [id number]/CPS #: [id number] SINA
[2017-04-04] MEDS ORDERED: Insulin LISPRO* 1 UNITS UNIT SUBCUT SCH (07:30)
[2017-04-04] MEDS: Insulin LISPRO* 1 UNITS UNIT SUBCUT SCH ×6 (07:35→17:42)
[2017-04-04] MEDS: Gabapentin CAP(*) 400 MG PO SCH ×4 (08:29→20:50)
[2017-04-04] MEDS: Aspirin EC Low Dose* 81 MG TAB.EC PO SCH (08:29)
[2017-04-04] MEDS: Lisinopril TAB* 10 MG PO SCH (08:29)
[2017-04-04] MEDS: OXcarbazepine TAB(*) 300 MG PO SCH ×2 (08:33→20:54)
[2017-04-04] MEDS: Hydrochlorothiazide TAB* 25 MG PO SCH (08:33)
[2017-04-04] MEDS: Nicotine PATCH 21 MG/24 HR* PATCH TRANSDERM SCH (08:35)
[2017-04-04] MEDS: Nicotine GUM* 2 MG PO PRN ×2 (08:37→11:49)
[2017-04-04] MEDS: Nicotine Inhaler* 10 MG AMP INH PRN ×3 (08:37→21:15)
--- NOTE | 2017-04-04 15:00 | PN ---
Progress Note - Progress Note Date of Service: 04/04/17 Note: Pt's blood sugars again reviewed today. His AM blood sugar was excellent this AM at 89. His sugars later in the day are >200. Will add lantus 10 units SQ qAM to see if we can obtain improved blood sugar control during the day. Continue lispro 10 units with meals plus sliding scale. His A1c is 9.0%, slightly improved from 11/2016 when his A1c was 9.4%. Will continue to follow blood sugars and adjust the lantus/lispro as needed.
[2017-04-04] MEDS: Naltrexone TAB* 50 MG TAB PO SCH (20:49)
[2017-04-04] MEDS: traZODone TAB* 100 MG PO SCH (20:50)
[2017-04-04] MEDS: Insulin GLARGINE(*) 1 UNITS UNIT SUBCUT SCH (20:51)
[2017-04-04] MEDS: Nicotine Patch Removal NOTE FOLLOW UP SCH (20:52)
[2017-04-05] MEDS: Insulin LISPRO* 1 UNITS UNIT SUBCUT SCH ×6 (07:53→16:57)
[2017-04-05] MEDS: Nicotine PATCH 21 MG/24 HR* PATCH TRANSDERM SCH (08:15)
[2017-04-05] MEDS: Aspirin EC Low Dose* 81 MG TAB.EC PO SCH (08:17)
[2017-04-05] MEDS: Lisinopril TAB* 10 MG PO SCH (08:17)
[2017-04-05] MEDS: Hydrochlorothiazide TAB* 25 MG PO SCH (08:17)
[2017-04-05] MEDS: Gabapentin CAP(*) 400 MG PO SCH ×4 (08:18→21:45)
[2017-04-05] MEDS: OXcarbazepine TAB(*) 300 MG PO SCH (08:19)
[2017-04-05] MEDS: Nicotine Inhaler* 10 MG AMP INH PRN ×4 (08:20→21:50)
[2017-04-05] MEDS: Nicotine GUM* 2 MG PO PRN ×4 (08:20→21:49)
[2017-04-05] MEDS ORDERED: Insulin GLARGINE(*) 1 UNITS UNIT SUBCUT SCH (09:00)
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
[2017-04-05] MEDS: traZODone TAB* 50 MG TAB PO SCH (21:44)
[2017-04-05] MEDS: Naltrexone TAB* 50 MG TAB PO SCH (21:45)
[2017-04-05] MEDS: Insulin GLARGINE(*) 1 UNITS UNIT SUBCUT SCH (21:46)
[2017-04-05] MEDS: Nicotine Patch Removal NOTE FOLLOW UP SCH (21:51)
[2017-04-06] MEDS: Insulin LISPRO* 1 UNITS UNIT SUBCUT SCH ×6 (08:17→16:58)
[2017-04-06] MEDS: Insulin GLARGINE(*) 1 UNITS UNIT SUBCUT SCH ×2 (08:17→21:13)
[2017-04-06] MEDS: Lisinopril TAB* 10 MG PO SCH (08:19)
[2017-04-06] MEDS: Gabapentin CAP(*) 400 MG PO SCH ×4 (08:19→21:17)
[2017-04-06] MEDS: OXcarbazepine TAB(*) 300 MG PO SCH ×2 (08:19→21:16)
[2017-04-06] MEDS: Aspirin EC Low Dose* 81 MG TAB.EC PO SCH (08:20)
[2017-04-06] MEDS: Hydrochlorothiazide TAB* 25 MG PO SCH (08:20)
[2017-04-06] MEDS: Nicotine GUM* 2 MG PO PRN ×3 (08:21→22:20)
[2017-04-06] MEDS: Nicotine PATCH 21 MG/24 HR* PATCH TRANSDERM SCH (08:21)
[2017-04-06] MEDS: Nicotine Inhaler* 10 MG AMP INH PRN ×4 (08:22→18:07)
--- NOTE | 2017-04-06 11:22 | PN ---
MHU: Group Therapy Note - Service Type Service Type: 23581 Group Psychotherapy - Cognitive Behavioral Group Therapy ( CBT):Patient was attentive and participatory in CBT programming this morning, and remained in good behavioral control. Patient expressed positive insights regarding relevant treatment interventions and goals.
[2017-04-06] MEDS: chlorproMAZINE TAB* 25 MG PO PRN ×2 (14:56→22:16)
--- NOTE | 2017-04-06 15:42 | PN ---
Subjective - Subjective Subjective: Psychiatric Attending Progress Note patient considerably less agitated today. Has been very cooperative and attending groups worked with geriatric social worker this morning to fill out more applications for alcohol rehab programs. patient was journaling when I appropached him for an interview. He reported to me that he was anxious about upcoming legal charge of risk of injury to minor. He met with an attorney recruiter accounting representative today from hospital who is helping him get in touch with public defendant. MSE: mood: anxious affect: labile TP organized TC no psychotic symptoms denies SI today. denies HI alert and fully oriented insight and judgment intact Impression: Bipolar Disorder unspecified mixed personality disorder polysubstance use history Plan: continue medication regimen unchanged awaiting transfer to alcohol rehab 30 day stay Assessment - Assessment Inpatient DSM-IV Dx: Unspecified Bipolar DO Plan - Plan Treatment Plan: Name: ROSEY Stormy LUNDBERG Birthdate: 1980 [id number]
[2017-04-06] MEDS: Naltrexone TAB* 50 MG TAB PO SCH (21:14)
[2017-04-06] MEDS: Nicotine Patch Removal NOTE FOLLOW UP SCH (22:20)
[2017-04-06] MEDS: traZODone TAB* 50 MG TAB PO SCH (22:20)
[2017-04-07] MEDS: traZODone TAB* 50 MG TAB PO SCH ×2 (00:57→21:03)
[2017-04-07] MEDS: Insulin GLARGINE(*) 1 UNITS UNIT SUBCUT SCH ×2 (08:05→21:04)
[2017-04-07] MEDS: Insulin LISPRO* 1 UNITS UNIT SUBCUT SCH ×6 (08:06→17:01)
[2017-04-07] MEDS: Nicotine PATCH 21 MG/24 HR* PATCH TRANSDERM SCH (08:45)
[2017-04-07] MEDS: Nicotine Inhaler* 10 MG AMP INH PRN ×4 (08:46→21:02)
[2017-04-07] MEDS: Nicotine GUM* 2 MG PO PRN ×4 (08:47→21:02)
[2017-04-07] MEDS: Hydrochlorothiazide TAB* 25 MG PO SCH (08:49)
[2017-04-07] MEDS: chlorproMAZINE TAB* 25 MG PO PRN ×2 (08:49→13:05)
[2017-04-07] MEDS: OXcarbazepine TAB(*) 300 MG PO SCH ×2 (08:50→21:02)
[2017-04-07] MEDS: Gabapentin CAP(*) 400 MG PO SCH ×4 (08:51→21:02)
[2017-04-07] MEDS: Aspirin EC Low Dose* 81 MG TAB.EC PO SCH (08:52)
[2017-04-07] MEDS: Lisinopril TAB* 10 MG PO SCH (08:52)
--- NOTE | 2017-04-07 11:30 | PN ---
Subjective - Subjective Subjective: Psychiatric Attending Progress Note Patient decided to expand his applications to various drub rehab. programs as suggested by the social media specialist as many of the programs have no spots. Increasing number of applicatins will increase his chances of getting a spot. Patient continues to present in a very histrionic fashion. He told me that he wants to get clean and wants to be a father to his three children. Patient has not spoken to his children in quite some time. will not permit him to have communication. Patient reports that his parents are also no longer able to be a resource to him. Furthermore, he tells me that he knows he must make a change. Patient told me that he went over psychological testing with Dr. Corbin who diagnosed him with borderline Personality Disorder. Patient accepted diagnosis. Objective - Appearance Appearance: Well Developed/Nourished Dysmorphic Features: No Hygiene: Normal Grooming: Well Kept - Behavior Psychomotor Activities: Normal Exhibits Abnormal Movement: No - Attitude and Relatedness Attitude and Relatedness: Manipulative Eye Contact: Good - Speech Quality: Unpressured Latencies: Normal Quantity: Appropriate - Mood Patient's Decription of Mood: "Anxious" - Affect Observed Affect: Labile Affect Consistent with: Dysphoria - Thought Process Patient's Thought Process: Coherent Thought Content: No Passive Wish, No Suicidal Planning, No Homicidal Ideation, No Paranoid Ideation - Sensorium Experiencing Hallucinations: No, Sensorium is Clear Type of Hallucinations: Visual: No, Auditory: No, Command: No - Level of Consciousness Level of Consciousness: Alert Orientation: Yes Intact, Yes Orientated to Time, Yes Orientated to Place, Yes Orientated to Person - Impulse Control Impulse Control: Tenuous - Insight and Judgement Insight and Judgement: Poor - Group Participation Particating in Group Activities: Yes - Medication Management Medication Management Adherence: Yes Assessment - Assessment Clinical Impression: Impression: 37 yo with history of polysubstance abuse in past, Borderline Personality Disorder, Bipolar Disorder. Patient recently arrested twice (DUI and intoxication resulting in risk of injury) resulting in upcoming court dates and possibly facing jailterm. additional stressors include low wages/financial probelms, Girlfriend broke up with him for good, since separation from girlfriend patient is homeless, no real family supports. Patient's parents brought him to the hospital as he was expressing depression and suicidal ideation. patient alleges history of coming very close to poisoningh imself with carbon monoxide. Patient is highly impulsive has multiple catastrophic stressors which combined place him at high risk for injury to self. Of concern however, is that patient was drug/alcohol free self admittedly for up to one week prior to admission. Malingering is also likely to be present as patient is homeless, and facing incarceration. Plan: Trileptal 450 mg BId Thorazine 25 mg Q4h prn anxiety Trazodone 50 mg qhs prn insomnia Gabapentin 800 mg QID continue all diabetes medications unchanged Nicotine replacement therapy unchanged. Increase Naltrexone to 50 mg qhs lisinopril and HCTZ unchanged Plan - Plan Medications: Current Medications Acetaminophen (Tylenol Tab*) 650 mg PO Q4H PRN PRN Reason: for pain; or Temp >101 F Last Admin: 04/03/17 09:11 Dose: 650 mg Al Hydrox/Mg Hydrox/Simethicone (Maalox Plus*) 30 ml PO Q4H PRN PRN Reason: INDIGESTION Aspirin (Aspirin Ec Low Dose*) 81 mg PO DAILY [facility] Last Admin: 04/07/17 08:52 Dose: 81 mg Chlorpromazine HCl (Thorazine Tab*) 25 mg PO Q4H PRN PRN Reason: AGITATION Last Admin: 04/07/17 08:49 Dose: 25 mg Device (Nicotine Mouth Piece*) 1 each INH .USE WITH NICOTROL PRN PRN Reason: CRAVING Last Admin: 04/03/17 16:54 Dose: 1 each Dextrose (D50w Syringe 50 Ml*) 12.5 gm IV PUSH .FOR FS < 60 - SS PRN PRN Reason: FS < 60 Gabapentin (Neurontin Cap(*)) 800 mg PO QID [facility] Last Admin: 04/07/17 08:51 Dose: 800 mg Hydrochlorothiazide (Hydrodiuril Tab*) 12.5 mg PO DAILY [facility] Last Admin: 04/07/17 08:49 Dose: 12.5 mg Insulin Glargine (Lantus(*)) 70 units SUBCUT 2100 [facility] Last Admin: 04/06/17 21:13 Dose: 70 units Insulin Glargine (Lantus(*)) 15 units SUBCUT DAILY [facility] Last Admin: 04/07/17 08:05 Dose: 15 units Insulin Human Lispro (Humalog*) 0 - 15 units SUBCUT 0730,1130,1630 [facility] PRN Reason: Protocol Last Admin: 04/07/17 08:06 Dose: 3 units Insulin Human Lispro (Humalog*) 12 units SUBCUT AC [facility] Last Admin: 04/07/17 08:07 Dose: 12 units Lisinopril (Prinivil Tab*) 10 mg PO DAILY [facility] PRN Reason: Protocol Last Admin: 04/07/17 08:52 Dose: 10 mg Naltrexone HCl (Naltrexone Tab*) 50 mg PO 2099 [facility] Last Admin: 04/06/17 21:14 Dose: 50 mg Nicotine (Nicotine Inhaler*) 10 mg INH Q2H PRN PRN Reason: CRAVING Last Admin: 04/07/17 08:46 Dose: 10 mg Nicotine (Nicotine Patch 21 Mg/24 Hr*) 1 patch TRANSDERM DAILY@0800 [facility] Last Admin: 04/07/17 08:45 Dose: 1 patch Nicotine Polacrilex (Nicotine Gum*) 2 mg PO Q2H PRN PRN Reason: CRAVING Last Admin: 04/07/17 08:47 Dose: 2 mg Oxcarbazepine (Trileptal Tab(*)) 450 mg PO BID@0900,2100 [facility] Last Admin: 04/07/17 08:50 Dose: 450 mg Pharmacy Profile Note (Nicotine Patch Removal Note*) 1 note FOLLOW UP 2099 [facility] Last Admin: 04/06/17 22:20 Dose: 1 note Trazodone HCl (Desyrel Tab*) 50 mg PO BEDTIME [facility] Last Admin: 04/07/17 00:57 Dose: 50 mg
--- NOTE | 2017-04-07 11:36 | PN ---
MHU: Group Therapy Note - Service Type Service Type: [id number] Group Psychotherapy - Cognitive Behavioral Group Therapy ( CBT):Patient was attentive and participatory in CBT programming this morning, and remained in good behavioral control. Patient expressed positive insights regarding relevant treatment interventions and goals.
--- NOTE | 2017-04-07 17:40 | CONS ---
PSYCHOLOGICAL REPORT: DATE OF CONSULT: 04/05/17 REASON FOR REFERRAL: Dany for referred for personality testing secondary to historical diagnosis of a bipolar disorder as well as concerns regarding characterological vulnerabilities consistent with cluster B personality traits. TEST ADMINISTERED: Dany completed the [place] Multiphasic Personality Inventory- 2 (MMPI-2). He was given feedback in individual consultation. RELEVANT HISTORY: Dany is a 37-year-old , , father of three with historical difficulties with poly-substance abuse and what sounds to be a persisting history of affective instability with recurrent episodes of suicidality. He describes increasing stressors having been living with his girlfriend and her two children for the past year. He describes the girlfriend as engaged in substance dependence including being treated for Suboxone and in abusing prescription pills. He describes being engaged in a rescuer role here trying to safeguard her from CPS auspices as he feels she is a neglectful mother. 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 He has a bachelor's degree from [employer] and at one point in time was entertaining entering [employer]. He describes having a degree in criminal justice. Dany is well-related in both programming as well as in individual conversation here and presents with good affect that is appropriately variable with conversation. He is relevant and coherent in conversation and is topical in his participation in programming. He can be somewhat tangential in individual conversation and may need redirection at times, but is currently very engaged and invested in his treatment. He is asking for referral to alcohol rehabilitation program and demonstrates good insight regarding the need for time as well as developing and maintaining better momentum towards sobriety. He describes understanding that he needs to attain and maintain sobriety and the moderation in drinking has not been working for him historically. TEST RESULTS: Dany provides an extremely distressed profile on this administration of the MMPI-2, having elevated emotional distress scales that are literally off the charts (that being T-score greater than 120 or greater). Concomitantly, he has extreme low scores on emotional coping and self-esteem attaining T-scores between 35 and 30 on these latter indices. He subsequently elevates all of the clinical scales with the exception of the psychopathic deviate. Rather incidental finding, Dany describes when he is least sober that he is very meticulous in attending to rules and regulations in such details. However, he has extreme elevations on the interpersonal context scales elevating paranoia, psychasthenia, and schizophrenia between T-scores of 105 and 115. He also elevates the hypomania scale to a T-score of 85, which is quite high. He elevates the neurotic triad scales to similar degrees as well. Persons with similar profiles are described as endorsing symptomatology in a "cry for help" response set. Although Dany does not experience any psychotic range disturbances, his endorsement of interpersonal duress is reflective of his sense of alienation from others and being apart from others. He does not describe any reliable source of emotional support apart from his family of origin. He describes a very distressed relationship with his current living girlfriend and describes estrangement from his biological children as well. IMPRESSIONS AND RECOMMENDATIONS: Persons with similar tested profiles are often considered for either borderline personality traits and/or narcissistic personality disorder. Dany's difficulty with affective instability is reflected in his hypomanic report presently and sounds to be part of his historical diagnosis of a bipolar disorder. In fact, he describes abusing cocaine and methamphetamine to the point of having remained awake for some 16 days at one point in time which may also play into his endorsement of affective instability and historical diagnosis of a bipolar process occurring. However, he presently does not discuss periods of katina insomnia in a similar fashion that are not drug induced or part of substance abuse. His presentation coupled with his scoring response impresses as supporting concerns regarding characterological vulnerabilities most likely in the context of borderline and/ or narcissistic proclivities. Ongoing treatment will try to further elaborate on Dany's symptomatology as well as helping foster insight regarding repetitive difficulties. Dany describes recurrent treatment failures in regards to medications, it seems less likely that he in fact does have a bipolar disorder, although this should continue to be ruled out. He also describes having some recurrent recommendations regarding electroconvulsive therapies, which he is somewhat offended by, and does not impress as interested in. This may also support a personality disorder as various treatment modalities have not been successful which on to-date. Hopefully, he can maintain positive momentum towards attending and participating in a 28-day rehabilitation program, where he will have the space and time to better explore both diagnostic issues as well as developing a positive future narrative once again. Diagnostic concerns should continue to rule out a bipolar disorder as well as polysubstance dependence, which includes amphetamine use disorders as well as alcohol; and consideration for borderline personality traits and narcissistic proclivity should also continued to be explored in the context of proper clinical diagnosis. [id number]/[facility] #: [id number] LOUIED
[2017-04-07] MEDS: Naltrexone TAB* 50 MG TAB PO SCH (21:03)
[2017-04-07] MEDS: Nicotine Patch Removal NOTE FOLLOW UP SCH (21:05)
[2017-04-08] MEDS: Insulin LISPRO* 1 UNITS UNIT SUBCUT SCH ×6 (08:24→17:02)
[2017-04-08] MEDS: Insulin GLARGINE(*) 1 UNITS UNIT SUBCUT SCH ×2 (08:25→21:26)
[2017-04-08] MEDS: Nicotine PATCH 21 MG/24 HR* PATCH TRANSDERM SCH (08:26)
[2017-04-08] MEDS: Gabapentin CAP(*) 400 MG PO SCH ×4 (08:27→21:27)
[2017-04-08] MEDS: Aspirin EC Low Dose* 81 MG TAB.EC PO SCH (08:27)
[2017-04-08] MEDS: Hydrochlorothiazide TAB* 25 MG PO SCH (08:28)
[2017-04-08] MEDS: Lisinopril TAB* 10 MG PO SCH (08:28)
[2017-04-08] MEDS: OXcarbazepine TAB(*) 300 MG PO SCH ×2 (08:28→21:29)
[2017-04-08] MEDS: chlorproMAZINE TAB* 25 MG PO PRN ×3 (08:30→17:58)
[2017-04-08] MEDS: Nicotine Inhaler* 10 MG AMP INH PRN ×4 (08:31→21:31)
[2017-04-08] MEDS: Nicotine GUM* 2 MG PO PRN ×4 (08:31→21:31)
--- NOTE | 2017-04-08 09:48 | PN ---
Subjective - Subjective Subjective: Psychiatric Attending Progress Note: keeping mostly to himself when not attending groups Met with patient X 30 minutes this afternoon. Patient was quite angry at first. He told me that he spoke with the public defendant who is handling his recent charge. Patient gave contradictory information Stating that the public service administrator told him that he should have gone to the hospital for treatment after his court date. He then told me that PD told him that the radio presenter would likely put out an arrest warrant. subsequently, he allegedly explained that he was referred to the hosptial by his PCP and the PD then told him that if he could get a letter from his PCP Dr. Jones confirming that she had referred him to the hospital, then the case could be postponed until after he completes rehab. patient tends to externalize blame to others, makes himself out to be a victim,and devalues people who have not given him the help he deserves. MSE: dysphoric mood gives way to impulsive anger and rage patient became angry at this clinician for no reason and this was pointed out Patient was able to recognize his response as inappropriate and able to pull it back and continue interview unimpeded by anger. Impression; Borderline Personality Disorder Bipolar unspecified polysubstance abuse Plan: Bed at [facility] will be available for Wednesday Will Increase Trileptal to 600 mg BID on Wednesday all other medications unchanged Assessment - Assessment Inpatient DSM-IV Dx: Unspecified Bipolar DO Clinical Impression: Impression: 37 yo with history of polysubstance abuse in past, Borderline Personality Disorder, Bipolar Disorder. Patient recently arrested twice (DUI and intoxication resulting in risk of injury) resulting in upcoming court dates and possibly facing jailterm. additional stressors include low wages/financial probelms, Girlfriend broke up with him for good, since separation from girlfriend patient is homeless, no real family supports. Patient's parents brought him to the hospital as he was expressing depression and suicidal ideation. patient alleges history of coming very close to poisoningh imself with carbon monoxide. Patient is highly impulsive has multiple catastrophic stressors which combined place him at high risk for injury to self. Of concern however, is that patient was drug/alcohol free self admittedly for up to one week prior to admission. Malingering is also likely to be present as patient is homeless, and facing incarceration. Plan: Trileptal 450 mg BId Thorazine 25 mg Q4h prn anxiety Trazodone 50 mg qhs prn insomnia Gabapentin 800 mg QID continue all diabetes medications unchanged Nicotine replacement therapy unchanged. Increase Naltrexone to 50 mg qhs lisinopril and HCTZ unchanged
[2017-04-08] MEDS: Naltrexone TAB* 50 MG TAB PO SCH (21:27)
[2017-04-08] MEDS: traZODone TAB* 50 MG TAB PO SCH (21:27)
[2017-04-08] MEDS: Nicotine Patch Removal NOTE FOLLOW UP SCH (21:38)
[2017-04-09] MEDS: Insulin LISPRO* 1 UNITS UNIT SUBCUT SCH ×6 (08:00→17:01)
[2017-04-09] MEDS: Insulin GLARGINE(*) 1 UNITS UNIT SUBCUT SCH ×2 (08:53→21:03)
[2017-04-09] MEDS: Nicotine Inhaler* 10 MG AMP INH PRN ×3 (08:54→17:03)
[2017-04-09] MEDS: Nicotine GUM* 2 MG PO PRN ×3 (08:54→17:03)
[2017-04-09] MEDS: Nicotine PATCH 21 MG/24 HR* PATCH TRANSDERM SCH (08:55)
[2017-04-09] MEDS: Gabapentin CAP(*) 400 MG PO SCH ×4 (08:56→21:04)
[2017-04-09] MEDS: OXcarbazepine TAB(*) 300 MG PO SCH ×2 (08:57→21:05)
[2017-04-09] MEDS: Hydrochlorothiazide TAB* 25 MG PO SCH (08:57)
[2017-04-09] MEDS: Aspirin EC Low Dose* 81 MG TAB.EC PO SCH (08:57)
[2017-04-09] MEDS: Lisinopril TAB* 10 MG PO SCH (08:57)
--- NOTE | 2017-04-09 11:57 | PN ---
[facility]HU: Group Therapy Note - Service Type Service Type: 99920 Group Psychotherapy - Cognitive Behavioral Group Therapy ( CBT):Patient was attentive and participatory in CBT programming this morning, and remained in good behavioral control. Patient expressed positive insights regarding relevant treatment interventions and goals.
[2017-04-09] MEDS: chlorproMAZINE TAB* 25 MG PO PRN ×2 (12:50→17:02)
--- NOTE | 2017-04-09 16:19 | PN ---
Subjective - Subjective Subjective: Psychiatric attending progress note uneventful day. no complaints patient called his children and was overjoyed that exwife allowed him to speak with them. spoke with stratigrapher who postponed hi court date until may. looks forward to transfer to alcohol rehab program at [facility] in [facility] this coming wednesday. MSE: denies SI mood: improved affect brighter less labile today impression: cluster B personality disorder polysubstance abuse mood disorder nos Plan: increase Trileptal to 600 mg BID gabapentin 800 mg QID naltrexone 100 mg qhs all other meds unchanged Assessment - Assessment Inpatient DSM-IV Dx: Unspecified Bipolar DO Clinical Impression: Impression: 37 yo with history of polysubstance abuse in past, Borderline Personality Disorder, Bipolar Disorder. Patient recently arrested twice (DUI and intoxication resulting in risk of injury) resulting in upcoming court dates and possibly facing jailterm. additional stressors include low wages/financial probelms, Girlfriend broke up with him for good, since separation from girlfriend patient is homeless, no real family supports. Patient's parents brought him to the hospital as he was expressing depression and suicidal ideation. patient alleges history of coming very close to poisoningh imself with carbon monoxide. Patient is highly impulsive has multiple catastrophic stressors which combined place him at high risk for injury to self. Of concern however, is that patient was drug/alcohol free self admittedly for up to one week prior to admission. Malingering is also likely to be present as patient is homeless, and facing incarceration. Plan: Trileptal 450 mg BId Thorazine 25 mg Q4h prn anxiety Trazodone 50 mg qhs prn insomnia Gabapentin 800 mg QID continue all diabetes medications unchanged Nicotine replacement therapy unchanged. Increase Naltrexone to 50 mg qhs lisinopril and HCTZ unchanged
[2017-04-09] MEDS: Naltrexone TAB* 50 MG TAB PO SCH (21:04)
[2017-04-09] MEDS: traZODone TAB* 50 MG TAB PO SCH (21:05)
[2017-04-09] MEDS: Bisacodyl EC TAB* 5 MG PO PRN (21:09)
[2017-04-10] MEDS: Nicotine Patch Removal NOTE FOLLOW UP SCH ×2 (01:46→20:45)
[2017-04-10] MEDS: Docusate CAP* 100 MG PO SCH ×3 (01:46→20:12)
[2017-04-10] MEDS: Insulin GLARGINE(*) 1 UNITS UNIT SUBCUT SCH ×2 (08:01→20:41)
[2017-04-10] MEDS: Insulin LISPRO* 1 UNITS UNIT SUBCUT SCH ×6 (08:02→17:01)
[2017-04-10] MEDS: Nicotine PATCH 21 MG/24 HR* PATCH TRANSDERM SCH (08:55)
[2017-04-10] MEDS: Gabapentin CAP(*) 400 MG PO SCH ×4 (08:56→20:10)
[2017-04-10] MEDS: OXcarbazepine TAB(*) 300 MG PO SCH ×2 (08:57→20:11)
[2017-04-10] MEDS: Hydrochlorothiazide TAB* 25 MG PO SCH (08:57)
[2017-04-10] MEDS: Aspirin EC Low Dose* 81 MG TAB.EC PO SCH (08:57)
[2017-04-10] MEDS: Lisinopril TAB* 10 MG PO SCH (08:57)
[2017-04-10] MEDS: chlorproMAZINE TAB* 25 MG PO PRN ×2 (09:02→20:15)
[2017-04-10] MEDS: Nicotine Inhaler* 10 MG AMP INH PRN ×4 (10:26→20:47)
[2017-04-10] MEDS: Nicotine GUM* 2 MG PO PRN ×4 (10:26→20:47)
[2017-04-10] MEDS: Bisacodyl EC TAB* 5 MG PO PRN (18:06)
[2017-04-10] MEDS: Naltrexone TAB* 50 MG TAB PO SCH (20:12)
[2017-04-11] MEDS: traZODone TAB* 50 MG TAB PO SCH ×2 (00:58→22:05)
[2017-04-11] MEDS: Nicotine PATCH 21 MG/24 HR* PATCH TRANSDERM SCH (08:56)
[2017-04-11] MEDS: chlorproMAZINE TAB* 25 MG PO PRN ×2 (08:57→16:43)
[2017-04-11] MEDS: Aspirin EC Low Dose* 81 MG TAB.EC PO SCH (08:57)
[2017-04-11] MEDS: Hydrochlorothiazide TAB* 25 MG PO SCH (08:57)
[2017-04-11] MEDS: Nicotine Inhaler* 10 MG AMP INH PRN ×5 (08:57→22:10)
[2017-04-11] MEDS: Gabapentin CAP(*) 400 MG PO SCH ×4 (08:58→22:06)
[2017-04-11] MEDS: Lisinopril TAB* 10 MG PO SCH (08:58)
[2017-04-11] MEDS: OXcarbazepine TAB(*) 300 MG PO SCH ×2 (08:59→22:05)
[2017-04-11] MEDS: Docusate CAP* 100 MG PO SCH ×2 (09:01→22:09)
[2017-04-11] MEDS: Insulin GLARGINE(*) 1 UNITS UNIT SUBCUT SCH ×2 (09:02→22:02)
[2017-04-11] MEDS: Insulin LISPRO* 1 UNITS UNIT SUBCUT SCH ×6 (09:02→16:40)
[2017-04-11] MEDS: Nicotine GUM* 2 MG PO PRN ×5 (09:03→22:10)
[2017-04-11] MEDS: Naltrexone TAB* 50 MG TAB PO SCH (22:05)
[2017-04-11] MEDS: Nicotine Patch Removal NOTE FOLLOW UP SCH (22:09)
[2017-04-12] MEDS: Insulin GLARGINE(*) 1 UNITS UNIT SUBCUT SCH (08:09)
[2017-04-12] MEDS: Insulin LISPRO* 1 UNITS UNIT SUBCUT SCH ×2 (08:10→08:14)
[2017-04-12] MEDS: OXcarbazepine TAB(*) 300 MG PO SCH (08:11)
[2017-04-12] MEDS: Lisinopril TAB* 10 MG PO SCH (08:12)
[2017-04-12] MEDS: Hydrochlorothiazide TAB* 25 MG PO SCH (08:12)
[2017-04-12] MEDS: Aspirin EC Low Dose* 81 MG TAB.EC PO SCH (08:12)
[2017-04-12] MEDS: Gabapentin CAP(*) 400 MG PO SCH (08:12)
[2017-04-12] MEDS: Nicotine PATCH 21 MG/24 HR* PATCH TRANSDERM SCH (08:13)
[2017-04-12] MEDS: Nicotine Inhaler* 10 MG AMP INH PRN (08:16)
[2017-04-12] MEDS: Nicotine GUM* 2 MG PO PRN (08:16)
[2017-04-12 09:58] VITALS: BP 146/80
--- NOTE | 2017-04-12 10:06 | DCNOTE ---
Subjective - Subjective Subjective: DISCHARGE SUMMARY PATIENT: Dany Browning : 1980 AGE: 37 PROVIDER: Partha Campbell DO DATE OF ADMISSION: 04/01/2017 DATE OF DISCHARGE: 04/12/2017 DISCHARGE DIAGNOSES: Bipolar Disorder unspecified polysubstance abuse Unspecified personality disorder (cluster B) CONDITION AT THE TIME OF DISCHARGE: Stable/Improved MENTAL STATUS EXAM AT DISCHARGE: Patient is well developed and nourished 37 yo Male. He is well related and makes good eye contact. Speech shows normal rate, volume, rhythm, spontaneity and fluency. He is articulate speaker. Mood: Euthymic Affect: full range, reactive. Normal psychomotor behavior Thought process is organized and goal directed Thought content: Denies auditory or visual hallucinations. patient denies suicidal ideation, intent, impulses or plans. patient denied homicidal ideation. no evidence of delusions, paranoia, obsessions or compulsions. Alert and fully oriented in all 5 spheres. Insight is fair. Judgment is currently intact. however, in past can become impaired due to use of substances and tendency to have poor impulse control DISCHARGE INSTRUCTIONS: A. MEDICATIONS: Aspirin (Aspirin Ec Low Dose) 81 mg PO DAILY (QAM) Chlorpromazine HCl (Thorazine Tab*) 25 mg PO Q 4 to 6 hours PRN agitation Device (Nicotine Mouth Piece*) 1 each INH .USE WITH NICOTROL PRN craving Gabapentin (Neurontin Cap) 400 mg Cap. Take two capsules (800 mg) PO QID Hydrochlorothiazide 25 mg tablet. Take on tablet po QAM Insulin Glargine (Lantus) 75 units SQ QHS Insulin Human Lispro (Humalog*) 0 - 15 units SUBCUT 0730,1130,1630 before meals PRN based on fingerstick sliding insulin scale Insulin Human Lispro (Humalog*) 12 units SUBCUT before meals Lisinopril 10 mg po QAM Naltrexone HCl 50 mg Take two tablets (100 mg) po QHS Nicotine Inhaler 10 mg INH Q2H PRN craving Nicotine Patch 21 Mg/24 Hr Apply one patch daily in AM and Remove before hour of sleep Nicotine Polacrilex (Nicotine Gum) 2 mg PO Q2H PRN craving Trileptal 600 mg PO BID Trazodone HCl 50 mg po QHS Bisacodyl 10 mg. Take one tablet po daily prn constipation B. DIET: Diabetic C. ACTIVITIES: TOLERATED NICOTINE REPLACEMENT THERAPY WAS PRESCRIBED TO PATIENT. PATIENT WAS ALSO GIVEN THE [facility] QUITLINE WHICH IS THERE ARE NO LABORATORY OR DIAGNOSTIC STUDIES PENDING AT THE TIME OF DISCHARGE. D. FOLLOW UP CARE: PATIENT BEING TRANSFERRED TO [facility] FOR ADMISSION TO 30 DAY INPATIENT DRUG REHABILITATION PROGRAM. Follow up outpatient care to be arranged by [facility] at time of discharge E. SUBSTANCE ABUSE FOLLOWUP: 30 day inpatient drug rehabilitation at [facility] HOSPITAL COURSE: PART A. HISTORY OF THE PRESENT ILLNESS: Patient is a 37 yo father of 3 with a history of polysubstance abuse, bipolar disorder and multiple past psychiatric admissions for affective instability and suicidality. Patient has been living with opioid addicted girlfriend and her two children for past year. He is court mandated to attend outpatient substance abuse/ mental health treatment to satisfy DUI conviction which occurred in Nov 2016. He is seeing counselor Destin at [facility] in [facility] and has been receiving medication management for his psychiatric illness by his PCP. Patient reports that his last psychiatric admission was at [facility] in [place] in August 2016 for depression and near suicide attempt by CO poisoning. patient was discharged on Anatone which he took up until last month when his PCP discontinued it. He reports it was not effective for his mood swings and impulse control problems. However, he acknowledges that he was using drugs during this time. Patient acknowledges that he has not been honest with his counselor as he has been abusing alcohol daily and Adderall (prescribed for his girlfriend ) taking up to 12 adderall tablets at one time. last week neighbors called police as patient was intoxicated and causing a scene. Patient was arrested and charged with risk of injury to a minor. He reports after being arrested he was brought to hospital in [facility] at his request to be checked medically . patient was released from hospital and has pending court dates . Girlfriend broke up with him and does not want him to return. Having no place to live patient returned to parents home where he has been living for past 5 days. He reports that he has not used drugs or alcohol during these five days. 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 Patient reports that he has been increasingly depressed, ruminating daily about suicide with specific plan to either overdose himself with his insulin or poison himself with carbon monoxide. He further reports irritability, severe impulse control problems, explosive temper, intense dysphoria, periods during which he feels expansive, invincible and more prone to take risks without considering the consequences. Patient feels unsafe. he reports that he attempted to get the police to shoot him when he was being arrested. Patient is admitted on voluntary status for mood stabilization and to provide for his safety until suicidal ideation has remitted. PAST PSYCHIATRIC HISTORY: Patient reports that he has had multiple inpatient psychiatric admissions beginning in 2008 (age 28) at [facility] for depression and suicidal behavior/ideation. He denies any inpatient substance abuse rehab treatment. He did live in a [facility]dc house for a brief time in 2011. He has received outpatient services in past at [facility]. He reports having been diagnosed there with Bipolar Disorder, PTSD. He reports numerous medication trials including Depakote, Anatone, and many antidepressants SUBSTANCE ABUSE HISTORY: Began drinking alcohol at the age of 14. he further reports that he has abused everything except heroine. he endorses history of abusing alcohol, marijuana, cocaine, bath salts and miles/MDMA. He quite smoking in 2011. PAST MEDICAL HISTORY: includes obesity, Diabetes Mellitus type II, Hypertension, Lower back pain secondary to disc herniations. His primary care physician is Dr. Acosta. CURRENT MEDICATIONS: Glargine Insulin 80 units qhs Lispro insulin sliding scale AC Aspirin 81 mg qd Gabapentin 800 mg QID ALLERGIES: no Known Drug allergies FAMILY PSYCHIATRIC HISTORY: Father ex alcoholic now sober; sister with depression and anxiety. FAMILY/PSYCHOSOCIAL HISTORY: Patient grew up in [place]. he reports he was a straight A student, attended [employer] and obtained a 3.95 GPA earning an associates in business. He was for 7 years until 2011. he has 3 children whom he has only infrequent contact with. his children live in [place] with their mother and mother's boyfriend. Patient has an older brother and two older sisters. 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 HOSPITAL COURSE : PART B PSYCHIATRIC TREATMENT RENDERED: Patient was initially evaluated in the Emergency Department. Review of Systems and Physical examination were both unremarkable and patient was cleared and assessed as medically stable for psychiatric admission. Patient was admitted to the Behavioral health Unit on a voluntary status and was placed initially on Q 15 min observation status. Patient showed prominent cluster B character pathology including tendency to overidealize and devalue, low frustration tolerance, affective instability, tendency to minimize and externalize blame, history of engaging in relationships which are unstable, intermittent intense rage. Despite these difficulties,patient was for the most part cooperative with staff, respectful of other patients, and showed motivation and interest in particpating in his own care and towards recovery. He attended groups. Patient had contact with his children by phone during his stay which was highly meaningful for him. Patient also communicated with director of public relations with regard to legal charges he is facing and was learned that his court date would be postponed until May 2017. Patient's admission labs including CBC, comprehensive metabolic panel and urinalysis were all within normal limits. TSH was normal at 3.35. Urine toxicology screen on admission was negative for all substances of abuse. During his hospital stay patient was seen by a hospitalist for management of his diabetes and hypertension which were both stable during his hospital stay. patient was restarted on Lantus 75 mg at bedtime and received Humalog 12 units TID. He received additional Humalog TID before meals based on a sliding scale. Patient was restarted on Lisinopril 10 mg daily and Hydrochlorthiazide 12. 5 mg daily. The latter was increased to 25 mg daily to optimize blood pressure control with good effect. For treatment of affective instability and impulsivity patient was started on Trileptal which was titrated to 600 mg BID with good effect. In order to target anxiety patient was continued on his outpatient regimen of Gabapentin 800 mg QID. Finally, to promote sleep patient was started on Trazodone 100 mg QHS which was cut back to 50 mg qhs due to excess sedation with good effect. Patient had no adverse side effects to any of the prescribed medications. During patient's hospital stay he identified short term goal of becoming sober and learning coping strategies and prison ways for managing his anxiety and mood swings. He identified need to attend 30 day program in order to address his addiction in an intensive inpatient setting where he would have time to incorporate and internalize what he learns. Patient was enthusiastic and optimistic about discharge and about moving on to the next step in his recovery. PARTHA CAMPBELL DO ATTENDING PSYCHIATRIST
== END 2017-04-12 09:40 | DRG 753 ==
LOC: ED 11:44 → BSU 15:29
PROVIDERS: ADMIT Psychiatry & Neurology Psychiatry; ATTEND Psychiatry & Neurology Psychiatry
PROC: GZHZZZZ Group Psychotherapy (ICD-10-PCS; principal; 2017-04-09)
DX: F31.9 Bipolar disorder, unspecified (principal); R45.851 Suicidal ideations; E11.9 Type 2 diabetes mellitus without complications; F19.10 Other psychoactive substance abuse, uncomplicated; F60.9 Personality disorder, unspecified; F43.10 Post-traumatic stress disorder, unspecified; E66.9 Obesity, unspecified; I10 Essential (primary) hypertension; F10.10 Alcohol abuse, uncomplicated; K21.9 Gastro-esophageal reflux disease without esophagitis; G43.909 Migraine, unspecified, not intractable, without status migrainosus; F41.9 Anxiety disorder, unspecified; F41.0 Panic disorder [episodic paroxysmal anxiety]; F60.3 Borderline personality disorder; Z82.49 Family history of ischemic heart disease and other diseases of the circulatory system; Z23 Encounter for immunization; Z79.82 Long term (current) use of aspirin; Z79.4 Long term (current) use of insulin; Z87.891 Personal history of nicotine dependence; Z68.34 Body mass index [BMI] 34.0-34.9, adult; Z81.8 Family history of other mental and behavioral disorders; Z81.1 Family history of alcohol abuse and dependence; Z91.5 Personal history of self-harm; Z83.3 Family history of diabetes mellitus; Z59.0 Homelessness
CPT/HCPCS: 36415; 80053; 80307; 80320; 80329; 81003; 82947; 83036; 84443; 85025; 90686; 90732; 90853; 96102; 99222; 99231; 99232; 99233; 99238; 99283; A9270-GY; G0480

== ENCOUNTER 2019-03-03 11:32 | Emergency (ER) | payer OTHER ==
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
[2019-03-03 12:56] VITALS: BP 180/98
== END 2019-03-03 13:00 | disposition home or self-care (01) ==
LOC: UCEAST 11:32
DX: M54.5 Low back pain (principal); I10 Essential (primary) hypertension; E11.9 Type 2 diabetes mellitus without complications; Z87.891 Personal history of nicotine dependence; V59.9XXA Occupant (driver) (passenger) of pick-up truck or van injured in unspecified traffic accident, initial encounter; Y92.9 Unspecified place or not applicable
CPT/HCPCS: 72110; 99212; G0463

== ENCOUNTER 2022-11-04 18:04 | Inpatient (IN) ==
[2022-11-04] MEDS ORDERED: Lactated Ringers 1000 ml BAG 1,000 ML IV ONE (22:55)
[2022-11-04 23:14] LABS: Venous Bicarbonate HCO3 14.3 mmol/L (24-28)
[2022-11-04 23:15] LABS: ABS Basophils 0.1 10^3/uL (0.0-0.1); ABS Eosinophils 0.1 10^3/uL (0.0-0.5); ABS Lymphocytes 2.3 10^3/uL (1.0-4.8); ABS Monocytes 0.6 10^3/uL (0.0-1.1); ABS Neutrophils 5.3 10^3/uL (1.5-7.6); ABS Nucleated RBC 0.02 10^3/ul; Eosinophil % 1.2 %; Hematocrit 49.6 % (38-53); Lymphocyte % 27.7 %; Mean Corpuscular Hemoglobin 32.9 pg (27-33); Mean Corpuscular Hgb Conc 34.2 g/dL (31-36); Mean Platelet Volume 7.4 fL (7.5-11.2); Nucleated Red Blood Cells % 0.3 /100 WBC (0.0-0.4); Platelet Count 345 10^3/uL (150-450); Red Blood Count 5.17 10^6/uL (4.06-5.63); Red Cell Distribution Width 13.4 % (12-17); White Blood Count 8.3 10^3/uL (3.6-10.2)
[2022-11-04 23:29] LABS: ALT 22 U/L (7-52); Albumin/Globulin Ratio 1.3 (1-3); Alkaline Phosphatase 87 U/L (35-149); Blood Urea Nitrogen 25 mg/dL (6-24); C Reactive Protein 3.73 mg/L (<8.01); Calcium 8.9 mg/dL (8.6-10.3); Chloride 86 mmol/L (101-111); Creatinine, Serum 1.41 mg/dL (0.67-1.17); Sodium 123 mmol/L (135-145); eGFR CKD-EPI 63.4 (>60)
[2022-11-04 23:34] LABS: High Sens Troponin Baseline 4 pg/mL (<20)
[2022-11-04 23:36] LABS: CO2 Carbon Dioxide 12 mmol/L (22-32); Glucose 630 mg/dL (70-100)
[2022-11-04 23:38] LABS: INR 0.89 (0.83-1.13)
[2022-11-05 00:04] LABS: Anion Gap 25 mmol/L (2-16)
[2022-11-05 00:05] LABS: Potassium Redraw 5.5 mmol/L (3.5-5.0)
[2022-11-05] MEDS ORDERED: Lactated Ringers 1000 ml BAG 1,000 ML IV ONE ×2 (00:16→01:14)
[2022-11-05] MEDS ORDERED: Dextrose 50% Syringe 50 ml 25 GM/50 ML SYRINGE IV PUSH PRN ×2 (00:26→11:26)
[2022-11-05] MEDS ORDERED: Acetaminophen IV 1 GM/100ML 1,000 MG/100 ML BAG IV PRN (00:28)
[2022-11-05] MEDS ORDERED: Ondansetron 4 mg VIAL 2 MG/ML 2 ml VIAL IV PRN (00:28)
[2022-11-05] MEDS ORDERED: Insulin Infusion 100unit/100mL 100 UNIT/100 ML BAG IV SCH ×2 (01:00→08:00)
[2022-11-05 01:04] LABS: Magnesium 1.6 mg/dL (1.9-2.7)
[2022-11-05] MEDS ORDERED: [UNRECOGNIZED DRUG - OTHER] IV SCH (01:25)
[2022-11-05] MEDS ORDERED: Al Hydrox/Mg Hydrox/Simet LIQ 30 ML UDC PO ONE (02:14)
[2022-11-05 02:34] LABS: Blood Urea Nitrogen 24 mg/dL (6-24); Calcium 8.5 mg/dL (8.6-10.3); Chloride 93 mmol/L (101-111); Creatinine, Serum 1.22 mg/dL (0.67-1.17); Glucose 440 mg/dL (70-100); Sodium 125 mmol/L (135-145); eGFR CKD-EPI 75.4 (>60)
[2022-11-05 02:36] LABS: Urine Benzodiazepine Screen None Detected (None Detect); Urine Cannabinoids Screen None Detected (None Detect); Urine Opiates Screen None Detected (None Detect)
[2022-11-05 02:38] LABS: Anion Gap 20 mmol/L (2-16); CO2 Carbon Dioxide 12 mmol/L (22-32)
[2022-11-05] MEDS ORDERED: Lactated Ringers 1000 ml BAG 1,000 ML IV SCH (03:00)
[2022-11-05] MEDS ORDERED: D5LR 1000 ml BAG 1,000 ML IV SCH (03:00)
[2022-11-05 03:10] LABS: Potassium, Whole Blood 4.3 mmol/L (3.4-4.5)
[2022-11-05 06:13] LABS: ABS Basophils 0.1 10^3/uL (0.0-0.1); ABS Eosinophils 0.1 10^3/uL (0.0-0.5); ABS Monocytes 0.5 10^3/uL (0.0-1.1); ABS Neutrophils 4.1 10^3/uL (1.5-7.6); ABS Nucleated RBC 0.01 10^3/ul; Eosinophil % 1.5 %; Hematocrit 41.7 % (38-53); Hemoglobin 14.5 g/dL (13.2-16.3); Lymphocyte % 38.4 %; Mean Corpuscular Hemoglobin 32.8 pg (27-33); Mean Corpuscular Hgb Conc 34.8 g/dL (31-36); Mean Corpuscular Volume 94.4 fL (80-97); Nucleated Red Blood Cells % 0.1 /100 WBC (0.0-0.4); Platelet Count 305 10^3/uL (150-450); Red Blood Count 4.42 10^6/uL (4.06-5.63); Red Cell Distribution Width 12.9 % (12-17); White Blood Count 7.7 10^3/uL (3.6-10.2)
[2022-11-05 06:25] LABS: Blood Urea Nitrogen 19 mg/dL (6-24); CO2 Carbon Dioxide 19 mmol/L (22-32); Calcium 8.6 mg/dL (8.6-10.3); Chloride 102 mmol/L (101-111); Creatinine, Serum 1.12 mg/dL (0.67-1.17); Glucose 123 mg/dL (70-100); Sodium 132 mmol/L (135-145); eGFR CKD-EPI 83.6 (>60)
[2022-11-05 06:36] LABS: Anion Gap 11 mmol/L (2-16)
[2022-11-05] MEDS ORDERED: D5LR 20 MEQ KCL 1000 ml BAG 1,000 ML IV SCH (10:00)
[2022-11-05 10:54] LABS: Calcium 8.1 mg/dL (8.6-10.3); Creatinine, Serum 1.06 mg/dL (0.67-1.17); Potassium 4.1 mmol/L (3.5-5.0); eGFR CKD-EPI 89.3 (>60)
[2022-11-05] MEDS ORDERED: Insulin GLARGINE 100 un/ml 10 ml VIAL SUBCUT ONE (11:24)
[2022-11-05 16:24] LABS: Calcium 8.5 mg/dL (8.6-10.3); Creatinine, Serum 1.13 mg/dL (0.67-1.17); Potassium 4.4 mmol/L (3.5-5.0); eGFR CKD-EPI 82.7 (>60)
[2022-11-05] MEDS: Cariprazine 3 mg CAP (NF) PO SCH (20:06)
[2022-11-05 20:21] LABS: Blood Urea Nitrogen 20 mg/dL (6-24); CO2 Carbon Dioxide 23 mmol/L (22-32); Calcium 8.4 mg/dL (8.6-10.3); Chloride 101 mmol/L (101-111); Creatinine, Serum 1.24 mg/dL (0.67-1.17); Glucose 217 mg/dL (70-100); Sodium 134 mmol/L (135-145)
[2022-11-05 20:31] LABS: Anion Gap 10 mmol/L (2-16)
[2022-11-05 21:18] LABS: Potassium, Whole Blood 4.3 mmol/L (3.4-4.5)
[2022-11-06 01:17] LABS: Blood Urea Nitrogen 23 mg/dL (6-24); CO2 Carbon Dioxide 20 mmol/L (22-32); Calcium 8.2 mg/dL (8.6-10.3); Chloride 99 mmol/L (101-111); Creatinine, Serum 1.36 mg/dL (0.67-1.17); Glucose 316 mg/dL (70-100); Sodium 134 mmol/L (135-145); eGFR CKD-EPI 66.2 (>60)
[2022-11-06 01:20] LABS: Anion Gap 15 mmol/L (2-16)
[2022-11-06] MEDS ORDERED: Dextrose 50% Syringe 50 ml 25 GM/50 ML SYRINGE IV PUSH PRN (01:56)
[2022-11-06 03:04] LABS: Potassium, Whole Blood 4.2 mmol/L (3.4-4.5)
[2022-11-06 06:16] LABS: Hematocrit 42.6 % (38-53); Hemoglobin 14.8 g/dL (13.2-16.3); Mean Corpuscular Hgb Conc 34.9 g/dL (31-36); Mean Corpuscular Volume 94.6 fL (80-97); Mean Platelet Volume 7.4 fL (7.5-11.2); Platelet Count 266 10^3/uL (150-450); Red Cell Distribution Width 13.1 % (12-17); White Blood Count 7.2 10^3/uL (3.6-10.2)
[2022-11-06 06:43] LABS: Blood Urea Nitrogen 24 mg/dL (6-24); CO2 Carbon Dioxide 19 mmol/L (22-32); Chloride 101 mmol/L (101-111); Creatinine, Serum 1.22 mg/dL (0.67-1.17); Glucose 280 mg/dL (70-100); Sodium 134 mmol/L (135-145); eGFR CKD-EPI 75.4 (>60)
[2022-11-06 06:56] LABS: Anion Gap 14 mmol/L (2-16)
[2022-11-06 06:57] LABS: Potassium, Whole Blood 4.4 mmol/L (3.4-4.5)
[2022-11-06] MEDS: Insulin GLARGINE 100 un/ml 10 ml VIAL SUBCUT SCH (08:12)
[2022-11-06] MEDS: CMC:Desvenlafaxine 50 mg TAB ER (NF) PO SCH (08:15)
[2022-11-06] MEDS: Nicotine PATCH 21 MG/24 HR PATCH TRANSDERM SCH (10:32)
[2022-11-06] MEDS: Nicotine GUM 4MG FRUIT FLAVOR PO PRN ×2 (10:33→20:37)
[2022-11-06] MEDS: Cariprazine 3 mg CAP (NF) PO SCH (20:37)
[2022-11-07 06:07] LABS: Calcium 8.4 mg/dL (8.6-10.3); Creatinine, Serum 0.75 mg/dL (0.67-1.17); Magnesium 1.7 mg/dL (1.9-2.7); Potassium 3.8 mmol/L (3.5-5.0); eGFR CKD-EPI 114.8 (>60)
[2022-11-07] MEDS: CMC:Desvenlafaxine 50 mg TAB ER (NF) PO SCH (08:51)
[2022-11-07] MEDS: Nicotine PATCH 21 MG/24 HR PATCH TRANSDERM SCH (08:52)
[2022-11-07] MEDS: Insulin GLARGINE 100 un/ml 10 ml VIAL SUBCUT SCH (08:53)
[2022-11-07] MEDS ORDERED: Magnesium Sulfate 2 gm BAG 2 GM/50 ML BAG IVPB ONE (09:00)
[2022-11-07] MEDS: Nicotine GUM 4MG FRUIT FLAVOR PO PRN ×2 (10:56→21:43)
[2022-11-07] MEDS: KCL 10 MEQ/50 ML IVPREMIX 10 MEQ/50 ML BAG IV ONE ×2 (11:05→12:40)
[2022-11-07] MEDS: Cariprazine 3 mg CAP (NF) PO SCH (21:57)
[2022-11-08 06:47] LABS: Calcium 8.4 mg/dL (8.6-10.3); Creatinine, Serum 0.86 mg/dL (0.67-1.17); Magnesium 1.9 mg/dL (1.9-2.7); Potassium 4.4 mmol/L (3.5-5.0); eGFR CKD-EPI 110.2 (>60)
[2022-11-08] MEDS: Nicotine PATCH 21 MG/24 HR PATCH TRANSDERM SCH (08:18)
[2022-11-08] MEDS: Insulin GLARGINE 100 un/ml 10 ml VIAL SUBCUT SCH (08:18)
[2022-11-08] MEDS: CMC:Desvenlafaxine 50 mg TAB ER (NF) PO SCH (08:19)
[2022-11-08] MEDS: Cariprazine 3 mg CAP (NF) PO SCH (22:40)
[2022-11-09] MEDS: Nicotine PATCH 21 MG/24 HR PATCH TRANSDERM SCH (08:16)
[2022-11-09] MEDS: Insulin GLARGINE 100 un/ml 10 ml VIAL SUBCUT SCH (08:24)
[2022-11-09] MEDS: CMC:Desvenlafaxine 50 mg TAB ER (NF) PO SCH (08:25)
[2022-11-09 10:35] VITALS: BP 135/84
== END 2022-11-09 13:00 | DRG 420 ==
LOC: ED 18:04 → EDHOLD 23:46 → SUATTDRO 23:46 → ICU 11-05 00:51 → MED 11-05 18:21
PROVIDERS: ADMIT Internal Medicine Critical Care Medicine; ATTEND Internal Medicine